=== PATIENT | male | born 1960 | race Caucasian/White ===

== ENCOUNTER 2024-02-11 19:18 | Emergency (ER) | payer BC, SELFPAY ==
[2024-02-11 19:21] VITALS: BP 133/88; PULSE 73; RESP 16; TEMP 36.6; O2SAT 96; BMI 32.3
--- NOTE | 2024-02-11 19:26 | ED.GENADULT ---
HPI - General Adult General Time Seen by Provider: 19:27 Date Seen: 02/11/24 Chief complaint: Abdominal Pain Stated complaint: Diverticulitis flare up Time Seen by Provider: 02/11/24 19:26 Source: patient, RN notes reviewed and old records reviewed Mode of arrival: ambulatory Limitations: no limitations History of Present Illness HPI narrative: 64-year-old male who comes in today with abdominal pain. Patient notes couple of days of left-sided abdominal pain along with diarrhea multi colored stools? but no augustina blood. Patient has a history of diverticulitis and says this feels similar. No prior surgery for diverticulitis. Denies vomiting, fever, chest pain, cough, urinary symptoms. Related Data Home Medications Medication Instructions Recorded Confirmed gabapentin 300 mg capsule 300 mg PO BID PRN neuropathic pain 02/11/24 02/11/24 omeprazole 20 mg capsule,delayed 20 mg PO DAILY 02/11/24 02/11/24 release trazodone 100 mg tablet 200 mg PO QPM 02/11/24 02/11/24 Allergies Allergy/AdvReac Type Severity Reaction Status Date / Time No Known Drug Allergies Allergy Verified 02/11/24 20:22 PFSH PFS Social History Smoking Status: Never smoker How often do you have a drink containing alcohol: 2-4 times a month AUDIT-C Alcohol total score: 2 Non-prescribed substance use: denies use Exam Narrative: Exam Narrative: General: Well-developed and well-nourished, no acute distress Head: Atraumatic and normocephalic Eyes: Pupils are equal reactive, extraocular motions intact, conjunctiva clear ENT: External nose and ears are normal, posterior pharynx without erythema or exudate Neck: No midline cervical tenderness, full spontaneous range of motion the neck, trachea midline, no adenopathy Heart: Regular rate and rhythm no murmurs or thrills Lungs: Clear to auscultation bilaterally without wheezes or crackles Abdomen: Soft, left mid a.m. lower quadrant tender, nondistended with active bowel sounds Musculoskeletal: No tenderness, deformity, or edema Neurologic: Awake, alert, and oriented x3, no gross focal neurologic deficits, cranial nerves intact as tested Psych: Mood and affect are appropriate Skin: No rashes Const: Vital Signs, click to edit/add: Vital Signs - 24 hr 02/11/24 19:21 Temperature 98 F Pulse Rate [Pulse Oximeter] 73 Respiratory Rate 16 Blood Pressure [Ri t Upper Arm] 133/88 Pulse Oximetry 96 Oxygen Delivery Me thod Room Air Course Course ED Course: Patient seen and examined, prior records are reviewed. Patient presents today with abdominal pain, history of diverticulitis and says this feels similar. On initial exam, patient is vitally stable with no fever, tachycardia, or hypotension. He does have left mid abdomen and lower quadrant tenderness. Symptoms are most consistent with diverticulitis, labs ordered along with CT scan of the abdomen pelvis to evaluate for possible perforation although clinically this seems unlikely. If labs and CT are reassuring, patient can be started on oral antibiotics and discharged. Discussed plan with patient and spouse, questions answered. Reevaluation(s) Time of Reevaluation #1: 20:20 Reevaluation #1: Labs ordered and independently interpreted by me with normal white blood cell count, normal hemoglobin, creatinine slightly elevated from normal range at 1.4. Time of Reevaluation #2: 20:24 Reevaluation #2: CT scan of the abdomen and pelvis and panel interpreted by me appears to show an epiploic appendagitis, no evidence for acute diverticulitis. Patient stable for discharge with symptomatic treatment, no follow-up needed Vital Signs Vital signs: Initial Vital Signs Temperature 98 F 02/11/24 19:21 Temperature Source Temporal Artery Scan 02/11/24 19:21 Pulse Rate 73 02/11/24 19:21 Respiratory Rate 16 02/11/24 19:21 Blood Pressure 133/88 02/11/24 19:21 Blood Pressure Mean 103 02/11/24 19:21 Blood Pressure Position Sitting 02/11/24 19:21 Pulse Oximetry 96 02/11/24 19:21 Oxygen Delivery Method Room Air 02/11/24 19:21 Vital Signs Temperature 98 F 02/11/24 19:21 Pulse Rate 73 02/11/24 19:21 Respiratory Rate 16 02/11/24 19:21 Blood Pressure 133/88 02/11/24 19:21 Pulse Oximetry 96 02/11/24 19:21 Oxygen Delivery Method Room Air 02/11/24 19:21 Temperature 98 F 02/11/24 19:21 Pulse Rate 73 02/11/24 19:21 Respiratory Rate 16 02/11/24 19:21 Blood Pressure 133/88 02/11/24 19:21 Pulse Oximetry 96 02/11/24 19:21 Oxygen Delivery Method Room Air 02/11/24 19:21 Medications Administered Medications: Generic Name Dose Route Start Last Admin Trade Name Jean Carlos PRN Reason Stop Dose Admin Sodium Chloride 1,000 mls @ 1,000 mls/hr 02/11/24 20:15 02/11/24 20:25 0.9 % Sodium Chloride 1000 Ml IV 02/11/24 21:14 1,000 mls/hr .Q1H MELANIE Administration Medical Decision Making Lab Data Labs: Lab Results 02/11/24 02/11/24 Range/Units 19:45 19:57 WBC 6.38 (4.50-11.00) K/uL RBC 5.49 (4.30-5.90) m/uL Hgb 16.1 (13.5-17.5) gm/dL Hct 46.8 (37.0-53.0) % MCV 85 (80-100) fL MCH 29 (26-34) pg MCHC 34 (32-36) gm/dL RDW Coeff of Arlin 13.0 (11.5-15.5) % Plt Count 189 (140-440) K/uL Neut % (Auto) 49.2 (42.0-72.0) % Lymph % (Auto) 39.8 (20-44) % [place] % (Auto) 8.6 (0.0-11.0) % Eos % (Auto) 2.0 (0.0-7.0) % Baso % (Auto) 0.2 (0.0-3.0) % Neut # (Auto) 3.14 (1.7-7.0) K/uL Lymph # (Auto) 2.54 (0.90-2.90) K/uL [place] # (Auto) 0.50 (0.00-0.90) K/UL Eos # (Auto) 0.13 (0.00-0.50) K/uL Baso # (Auto) 0.01 (0.00-0.30) K/uL Abs Immat Gran (auto) 0.01 (0.00-0.30) K/uL Imm/Tot Granulo (auto) 0.2 % Sodium 138 (135-149) mmol/L Potassium 3.7 (3.6-5.1) mmol/L Chloride 104 (96-114) mmol/L Carbon Dioxide 25 (20-32) mmol/L Anion Gap 9 (7-15) mEq/L BUN 23 (7-30) mg/dL Creatinine 1.2 (0.5-1.5) mg/dL Estimated Creat Clear 56.12 Estimated GFR 68 ml/min Glucose 106 (60-115) mg/dL Calcium 9.3 (8.4-10.6) mg/dL POC Creatinine 1.4 H (0.6-1.3) mg/dl Discharge Plan Discharge Clinical Impression: Epiploic appendagitis Patient Disposition: Home, Self-Care Condition: Stable Additional Instructions: There is no evidence for diverticulitis or colitis on your CT scan. It appears she may have a condition called epiploic appendagitis. This is a benign self-limited inflammatory process caused by loss of blood flow or inflammation of one of the small fat filled sacs that line the outside of the intestine. This will get better on its own Activity Level: No Restrictions Discharge Diet: Regular Prescriptions: No Action trazodone 100 mg tablet 200 mg PO QPM gabapentin 300 mg capsule 300 mg PO BID PRN (Reason: neuropathic pain) omeprazole 20 mg capsule,delayed release(DR/EC) 20 mg PO DAILY Follow Up/Referrals: Zachery Christianson MD [Primary Care Provider] - Stand Alone Forms: [place] Info Instructions
--- NOTE | 2024-02-11 19:33 | CT_ITS ---
Patient: EVELYN JACKSON Facility:?[facility] Patient ID:?[id number] Site Patient ID:?[id number]. Site :?[id number] Study:?CT-Abdomen/Pelvis W/ 98CC ISOVUE 370-02/11/2024 8:21:42 PM Ordering Physician:[place] Final Report: INDICATION: Left lower quadrant pain. TECHNIQUE: CT abdomen and pelvis acquired with 98 cc Isovue 370 IV contrast. COMPARISON: None. FINDINGS: Lower chest: Scattered atelectasis. Liver: Unremarkable. Normal in size and attenuation. No suspicious masses. Gallbladder and bile ducts: Unremarkable. No stones or inflammation. No biliary dilatation. Pancreas: Unremarkable. No mass or inflammation. Spleen: Unremarkable. Normal in size. No masses. Adrenal glands: Incidental 2.2 centimeter left adrenal nodule. Kidneys: Unremarkable. No suspicious masses, stones, or hydronephrosis. GI tract: Moderate colonic stool burden. Colonic diverticulosis. Normal in caliber. No sign of mass or inflammation. Normal appendix. Vasculature: Abdominal aorta is normal in caliber. Mesenteric arteries are patent. Lymph nodes: No lymphadenopathy. Peritoneum/Abdominal Wall: Unremarkable. No sign of mass or infiltration. No free air or significant free fluid. Pelvis: Prostatomegaly. Mildly distended bladder with circumferential wall thickening. Bones: Bilateral L5 pars defects with mild anterolisthesis of L5 on S1. IMPRESSION: No acute intra-abdominal/pelvic abnormality. Colonic diverticulosis without diverticulitis Moderate colonic stool burden. Prostatomegaly. Please note that all CT scans at this facility use dose modulation, iterative reconstruction, and/or weight-based dosing when appropriate to reduce radiation dose to as low as reasonably achievable. Dictated by Huan Martinez MD @ 02/11/2024 8:35:57 PM Signed by:?Huan Martinez MD @02/11/2024 8:35:57 PM (Electronic Signature)
[2024-02-11 20:02] LABS: Creatinine, Point-of-Care* 1.4 mg/dl (0.6-1.3)
[2024-02-11 20:10] LABS: Basophils Absolute Auto 0.01 K/uL (0.00-0.30); Basophils Percent Auto 0.2 % (0.0-3.0); Eosinophils Absolute Auto 0.13 K/uL (0.00-0.50); Hematocrit 46.8 % (37.0-53.0); Hemoglobin* 16.1 gm/dL (13.5-17.5); Immature Granulocytes Abs Auto 0.01 K/uL (0.00-0.30); Immature Granulocytes Pct Auto 0.2 %; Lymphocytes Absolute Auto 2.54 K/uL (0.90-2.90); Lymphocytes Percent Auto 39.8 % (20-44); Mean Corpuscular HGB Conc 34 gm/dL (32-36); Mean Corpuscular Hemoglobin 29 pg (26-34); Mean Corpuscular Volume 85 fL (80-100); Monocytes Percent Auto 8.6 % (0.0-11.0); Neutrophils Absolute Auto 3.14 K/uL (1.7-7.0); Neutrophils Percent Auto 49.2 % (42.0-72.0); Platelet Count* 189 K/uL (140-440); Red Blood Count 5.49 m/uL (4.30-5.90); White Blood Count* 6.38 K/uL (4.50-11.00)
[2024-02-11 20:14] LABS: Slide Review Reflex No
[2024-02-11 20:20] LABS: Chloride* 104 mmol/L (96-114); Potassium* 3.7 mmol/L (3.6-5.1); Sodium* 138 mmol/L (135-149)
[2024-02-11 20:23] LABS: Anion Gap 9 mEq/L (7-15); Blood Urea Nitrogen* 23 mg/dL (7-30); Carbon Dioxide* 25 mmol/L (20-32); Creatinine* 1.2 mg/dL (0.5-1.5); Est. Creatinine Clearance* 56.12; Estimated Glomerular Filt Rate 68 ml/min; Glucose* 106 mg/dL (60-115)
[2024-02-11 20:24] LABS: Calcium* 9.3 mg/dL (8.4-10.6)
[2024-02-11] MEDS: 0.9 % SODIUM CHLORIDE 1000 ml 1,000 ML IV (20:25)
== END 2024-02-11 21:01 | disposition home or self-care (01) ==
PROVIDERS: Emergency Provider Family Medicine; PCP Family Medicine
DX: K63.89 Other specified diseases of intestine (principal)
CPT/HCPCS: 36415; 74177; 80048; 82565; 85025; 99283; 99284; J7030; Q9967

== ENCOUNTER 2024-08-17 06:54 | Emergency (ER) | payer BC, SELFPAY ==
[2024-08-17 07:14] VITALS: BP 127/79; PULSE 70; RESP 18; TEMP 36.5; O2SAT 95; BMI 31.3
--- NOTE | 2024-08-17 07:24 | ED.ABDPAIN ---
HPI - Abdominal Pain General Time Seen by Provider: 07:24 Date Seen: 08/17/24 Chief Complaint: Abdominal Pain Stated Complaint: Lower LT sided abdominal pain Time Seen by Provider: 08/17/24 07:23 Source: patient Mode of arrival: ambulatory Limitations: no limitations History of Present Illness HPI narrative: 64-year-old male who presents today with left-sided abdominal and flank pain starting yesterday. Worse with walking and movement, no nausea vomiting, no diarrhea. Denied taking medication with. No urinary symptoms. Has had diverticulitis in this feels similar but different location. Related Data Home Medications ?Medication ?Instructions ?Recorded ?Confirmed trazodone 100 mg tablet 200 mg PO QPM 02/11/24 04/18/24 Allergies Allergy/AdvReac Type Severity Reaction Status Date / Time No Known Drug Allergies Allergy Verified 08/17/24 08:23 [facility] Social History Smoking Status: Never smoker How often do you have a drink containing alcohol: 2-4 times a month AUDIT-C Alcohol total score: 2 Non-prescribed substance use: denies use Exam Narrative: Exam Narrative: General: Well-developed and well-nourished, no acute distress Head: Atraumatic and normocephalic Eyes: Pupils are equal reactive, extraocular motions intact, conjunctiva clear ENT: External nose and ears are normal, posterior pharynx without erythema or exudate Neck: No midline cervical tenderness, full spontaneous range of motion the neck, trachea midline, no adenopathy Heart: Regular rate and rhythm no murmurs or thrills Lungs: Clear to auscultation bilaterally without wheezes or crackles Abdomen: Soft, mild left lateral mid abdominal tenderness, nondistended with active bowel sounds Musculoskeletal: No tenderness, deformity, or edema Neurologic: Awake, alert, and oriented x3, no gross focal neurologic deficits, cranial nerves intact as tested Psych: Mood and affect are appropriate Skin: No rashes Const: Vital Signs, click to edit/add: Vital Signs - 24 hr 08/17/24 07:14 08/17/24 08:25 Temperature 97.7 F Pulse Rate [Pulse Oximeter] 70 82 Respiratory Rate 18 16 Blood Pressure [Ri ght Upper Arm] 127/79 126/84 Pulse Oximetry 95 98 Oxygen Delivery Me thod Room Air Room Air Course Course ED Course: Patient seen and examined, presents with left-sided abdominal pain since yesterday. On exam here the, vital is stable, mild left lateral abdominal tenderness. Likely diverticulitis, colitis, mesenteric adenitis, and kidney stone also possible. Labs ordered along with CT scan, patient declines pain medication. Plan to sign out to oncoming provider at change of shift. Reevaluation(s) Time of Reevaluation #1: 08:15 Reevaluation #1: Labs independently interpreted by me with normal CBC, normal basic panel. Vital Signs Vital signs: Initial Vital Signs Temperature 97.7 F 08/17/24 07:14 Temperature Source Temporal Artery Scan 08/17/24 07:14 Pulse Rate 70 08/17/24 07:14 Respiratory Rate 18 08/17/24 07:14 Blood Pressure 127/79 08/17/24 07:14 Blood Pressure Mean 95 08/17/24 07:14 Blood Pressure Position Sitting 08/17/24 07:14 Pulse Oximetry 95 08/17/24 07:14 Oxygen Delivery Method Room Air 08/17/24 07:14 Vital Signs Temperature 97.7 F 08/17/24 07:14 Pulse Rate 70 08/17/24 07:14 Respiratory Rate 18 08/17/24 07:14 Blood Pressure 127/79 08/17/24 07:14 Pulse Oximetry 95 08/17/24 07:14 Oxygen Delivery Method Room Air 08/17/24 07:14 Temperature 97.7 F 08/17/24 07:14 Pulse Rate 82 08/17/24 08:25 Respiratory Rate 16 08/17/24 08:25 Blood Pressure 126/84 08/17/24 08:25 Pulse Oximetry 98 08/17/24 08:25 Oxygen Delivery Method Room Air 08/17/24 08:25 MDM - Abdominal Pain Lab Data Labs: Lab Results 08/17/24 Range/Units 07:25 WBC 5.85 (4.50-11.00) K/uL RBC 5.58 (4.30-5.90) m/uL Hgb 16.5 (13.5-17.5) gm/dL Hct 47.9 (37.0-53.0) % MCV 86 (80-100) fL MCH 30 (26-34) pg MCHC 34 (32-36) gm/dL RDW Coeff of Arlin 13.1 (11.5-15.5) % Plt Count 168 (140-440) K/uL Neut % (Auto) 52.6 (42.0-72.0) % Lymph % (Auto) 35.7 (20-44) % [place] % (Auto) 8.0 (0.0-11.0) % Eos % (Auto) 3.1 (0.0-7.0) % Baso % (Auto) 0.3 (0.0-3.0) % Neut # (Auto) 3.07 (1.7-7.0) K/uL Lymph # (Auto) 2.09 (0.90-2.90) K/uL [place] # (Auto) 0.50 (0.00-0.90) K/UL Eos # (Auto) 0.18 (0.00-0.50) K/uL Baso # (Auto) 0.02 (0.00-0.30) K/uL Abs Immat Gran (auto) 0.02 (0.00-0.30) K/uL Imm/Tot Granulo (auto) 0.3 % Sodium 137 (135-149) mmol/L Potassium 4.3 (3.6-5.1) mmol/L Chloride 108 (96-114) mmol/L Carbon Dioxide 21 (20-32) mmol/L Anion Gap 8 (7-15) mEq/L BUN 19 (7-30) mg/dL Creatinine 0.9 (0.5-1.5) mg/dL Estimated Creat Clear 69.77 Estimated GFR 95 ml/min Glucose 107 (60-115) mg/dL Calcium 9.2 (8.4-10.6) mg/dL Discharge Plan Discharge Clinical Impression: Left lateral abdominal pain, Adrenal nodule Patient Disposition: Home, Self-Care Condition: Stable Instructions: Abdominal Pain (ED) Additional Instructions: Take Tylenol and ibuprofen as needed for pain There is a nodule on the left adrenal eating. These are common and benign. You should follow-up with your primary care doctor for re-evaluation in 3-6 months Activity Level: No Restrictions Discharge Diet: Regular Prescriptions: No Action trazodone 100 mg tablet 200 mg PO QPM Follow Up/Referrals: Zachery Christianson MD [Primary Care Provider] - Stand Alone Forms: [employer] Info Instructions
--- NOTE | 2024-08-17 07:31 | CT_ITS ---
Patient: EVELYN JACKSON Facility:?[facility] Patient ID:?[id number] Site Patient ID:?[id number]. Site :?[id number] Study:?CT-Abdomen/Pelvis WITH 98 CC ISOVUE 370-08/17/2024 8:27:26 AM Ordering Physician:Jude De Leon Final Report: INDICATION: Left-sided abdominal pain COMPARISON: None TECHNIQUE: CT examination of the abdomen and pelvis was performed following the uneventful intravenous administration of 98 cc of Isovue 370. Thin section axial images were obtained from the lung bases through the pubic symphysis. Oral contrast was not administered. Please note that all CT scans at this facility use dose modulation, iterative reconstruction, and/or weight-based dosing when appropriate to reduce radiation dose to as low as reasonably achievable. FINDINGS: LUNG BASES: Granuloma at the right lung base. Small hiatal hernia.The heart size is normal at the lung bases. LIVER/BILIARY SYSTEM:The liver is normal in size and configuration. There is no focal mass and there is no intra- or extra hepatic biliary ductal dilatation.Hepatic steatosis. Normal-appearing gallbladder ADRENALS: Right adrenal gland is normal. There is a left adrenal nodule measuring 2.2 centimeters. This is considered indeterminate. Consider follow-up imaging such as a multiphase CT or multiphase MRI to characterize this lesion. KIDNEYS, URETERS and BLADDER:The kidneys appear normal. No visible mass, calculus or hydronephrosis. The ureters and bladder as visualized appear normal. SPLEEN:Incidental granulomatous calcification PANCREAS: Appears normal. RETROPERITONEUM and MESENTERY: There is no mass, adenopathy or aortic aneurysm. GASTROINTESTINAL SYSTEM: There is no evidence of diverticulitis, colitis, mechanical obstruction, or appendicitis. The small bowel as visualized appears normal.Extensive diverticulosis. Mild fecal retention. No acute appearing GI finding. PELVIS: No mass, adenopathy or free fluid. OSSEOUS STRUCTURES and ABDOMINAL WALL: Degenerative changes especially at L5-S1. There is also a grade 1 spondylolytic spondylolisthesis of L5 on S1.Incidental tiny fat containing umbilical hernia. OTHER: No free fluid or free air. IMPRESSION: 1. There is no specific visible cause for pain. 2. Indeterminate left adrenal nodule. Consider follow-up formal additional imaging for characterization in the nonacute setting. 3. Diverticulosis without diverticulitis. No acute appearing GI finding and no acute appearing renal finding to explain left-sided abdominal pain. 4. Other incidental nonacute appearing findings as discussed in the body of the report. Please review the comments. Please note that all CT scans at this facility use dose modulation, iterative reconstruction, and/or weight-based dosing when appropriate to reduce radiation dose to as low as reasonably achievable. Dictated by Lakhwinder Fallon MD @ 08/17/2024 8:32:18 AM Signed by:?Lakhwinder Fallon MD @08/17/2024 8:32:18 AM (Electronic Signature)
[2024-08-17 07:37] LABS: Basophils Absolute Auto 0.02 K/uL (0.00-0.30); Basophils Percent Auto 0.3 % (0.0-3.0); Eosinophils Absolute Auto 0.18 K/uL (0.00-0.50); Eosinophils Percent Auto 3.1 % (0.0-7.0); Hematocrit 47.9 % (37.0-53.0); Hemoglobin* 16.5 gm/dL (13.5-17.5); Immature Granulocytes Abs Auto 0.02 K/uL (0.00-0.30); Immature Granulocytes Pct Auto 0.3 %; Lymphocytes Absolute Auto 2.09 K/uL (0.90-2.90); Lymphocytes Percent Auto 35.7 % (20-44); Mean Corpuscular HGB Conc 34 gm/dL (32-36); Mean Corpuscular Hemoglobin 30 pg (26-34); Mean Corpuscular Volume 86 fL (80-100); Neutrophils Absolute Auto 3.07 K/uL (1.7-7.0); Neutrophils Percent Auto 52.6 % (42.0-72.0); Platelet Count* 168 K/uL (140-440); RDW Coefficient of Variation % 13.1 % (11.5-15.5); Red Blood Count 5.58 m/uL (4.30-5.90); White Blood Count* 5.85 K/uL (4.50-11.00)
--- OUTSIDE RECORDS SUMMARY | 2024-08-17 07:38 | XMS_ITS | Continuity of Care Document ---
Author Organization [facility] Address [address] [address] [place] [address] Phone Care Team Providers Care Interactive Account Manager Name Role Phone Cynthia GEE, Rosalie Unavailable Unavaila ble Allergies, Adverse Reactions, Alerts Substance Reaction Status Criticality No Known Allergies Active No Inform ation Medications Medication Instructions Dosage Effective Dates (start - stop) Status Comments omeprazole 20 mg capsule,delayed release take 1 capsule by oral route every day 30 minutes to 1 hour before a meal 20 MG - Active Pepcid 20 mg tablet take 1 tablet by oral route every day 20 MG - Active trazodone 100 mg tablet take 2 Tablet by ORAL route every evening as needed for sleep 200 MG - Active aspirin 81 mg tablet,delayed release take 1 tablet by oral route 2 times every day 81 MG - No Longer Active omeprazole 40 mg capsule,delayed release take 1 capsule by oral route every day before a meal 40 MG - No Longer Active Procedures Procedure Date Offic/outpt E&m Estab Low-mod 2 Ugi Endo; W/bx 1/mx Level Iv-surg Path Gross/micro 22 Offic/outpt E&m Estab Mod-hi 2 22 Established Level 3 or 15-24 min 2019 Ugi Endo; W/bx 1/mx Level Iv-surg Path Gross/micro 20 Established Level 4 or 25-39 min 2019 Offic/outpt E&m Estab Mod-hi 2 20 Colonoscopy Flex; W/remov Les- 19 Level Iv-surg Path Gross/micro 19 cancelled appt Offic/outpt E&m New Mod-hi Advance Directives Directive Yes / No Effective Date File Name No Information Encounters Encounter Description Practice Location Reason(s) For Visit Diagnoses Date Provider Providers Copied on Encounter Offic/outpt E&m Estab Low-mod [facility], [address] [address], [place], [place], [id number], [place] tel:[phone] [facility] GI Symptoms or Concerns (chief complaint) Epigastric painAcute gastritis, presence of bleeding unspecified, unspecified gastritis type 2 Cynthia Wiggins. [address] [place] [address], [id number], [place]. tel:[phone] Referring Provider: Referral Self, USE FOR SELF REFERRALS. [facility], [address] [address], [place], [place], [id number], [place] tel:[phone] [facility] GI Symptoms or Concerns (chief complaint) Epigastric painEpigastri c pain 2 Namrata Pollard. [address], [id number], [place]. tel:[phone] Referring Provider: Referral Self, USE FOR SELF REFERRALS. Offic/outpt E&m Estab Mod-hi [address] [facility], [address] [address], [place], [place], [id number], [place] tel:[phone] [facility] GI Symptoms or Concerns (chief complaint) Epigastric painNauseaCon stipation, unspecified constipation type 2 Cynthia Wiggins. [address] [place] [address], [id number], [place]. tel:[phone] Referring Provider: Referral Self, USE FOR SELF REFERRALS. Established Level 3 or 15-24 min [facility], [address] [address], [place] [address], [id number], [place] tel:[phone] [facility] GI Symptoms or Concerns (chief complaint) LUQ painLLQ pain 0 iDann Mendoza. [address] [place] [address], [id number], [place]. tel:[phone] Referring Provider: Zachery Tyler, [address] [place], [address]. tel:[phone] [facility], [address] [address], [address], [id number], [place] tel:[phone] [facility] Irregular Z line of esophagusHiat al herniaGastrod uodenitis without bleedingDuode nitis without bleedingAbnor mal findings on dx imaging of prt digestive tractUnspecif ied abdominal painDisease of esophagus, unspecified 0 No Information Referring Provider: Referral Self, USE FOR SELF REFERRALS. Established Level 4 or 25-39 min [facility], [address] [address], [address], [id number], [place] tel:[phone] [facility] GI Symptoms or Concerns (chief complaint) LUQ painLLQ painBloatingD ecreased appetite 0 Diann Mendoza. [address] [place] [address], [id number], [place]. tel:[phone] Referring Provider: Zachery Tyler, [address] [place], [address]. tel:[phone] [facility], [address] [address], [address], [id number], [place] tel:[phone] [facility] No Information 0 Carina Mckeon. [address] [place] [address], [id number], [place]. tel:[phone] Offic/outpt E&m Estab Mod-hi [address] [facility], [address] [address], [address], [id number], [place] tel:[phone] [facility] Comment (chief complaint) Dvrtclos of lg int w/o perforation or abscess w/o bleeding 0 Dereje Nguyen. [address] [facility], [address], [id number], [place]. [phone] Referring Provider: Referral Self, USE FOR SELF REFERRALS. [facility], [address] [address], [place], [place], [id number], [place] tel:[phone] [facility] No Information 0 Carina Mckeon. [address], [id number], [place]. [phone] [facility], [address] [address], [place], [id number], [place] tel:[phone] [facility] Colorectal polypsDiverti culosis of colon without diverticuliti sHemorrhoids, externalEncou nter for screening for malignant neoplasm of colonBenign neoplasm of transverse colonBenign neoplasm of descending colonDvrtclos of lg int w/o perforation or abscess w/o bleedingBenig n neoplasm of descending colonBenign neoplasm of transverse colon 9 Travon Duran. [address], [id number], [place]. tel:[phone] Referring Provider: Zachery Tyler, [address] [place], [address]. tel:[phone] [facility], [address] [address], [place], [id number], [place] tel:[phone] [facility] No Information 9 Heather Obregon. [address] [facility], [address], [id number], [place]. tel:[phone] Referring Provider: Zachery Tyler, [address] [place], [address]. tel:[phone] Offic/outpt E&m New Mod-hi [facility], [address] [address], [place], [place], [id number], [place] tel:[phone] [facility] GI Symptoms or Concerns (chief complaint) Chest pain, unspecified typeDietary counseling and surveillanceE levated blood-pressur e reading, w/o diagnosis of htn 9 Joana Dalal. [address] [facility], [facility] [address], [place], [place], [id number], [place]. tel:[phone] Referring Provider: Zachery Tyler, [address] [place], [address]. tel:[phone] Family History Family Member Type Diagnosis Age At Onset Mother Problem (finding) malignant neoplasm of s kin Brother Problem (finding) alcoholism Son Problem (finding) alcoholism Problem (finding) Family history of Cance r, unknown Father Problem (finding) malignant neoplasm of s kin Father Problem (finding) gallbladder disease Sister Problem (finding) alcoholism Immunizations Vaccine Date Status Comments Afluria Qd administered Note: II bi-directional interface ; Source: Other Registry SARS-COV-2 (COVID-19) vaccin e, mRNA, spike protein, LNP, bivalent booster, preservative free, 50 mcg/0.5 mL or 25 mcg/0.25 mL dose administered Note: [facility] bi-direct ional interface ; Source: Other Registry SARS-COV-2 (COVID-19) vaccin e, mRNA, spike protein, LNP, preservative free, 100 mcg/0.5mL dose or 50 mcg/0.25mL dose administered Note: [facility] bi -directional interface ; Source: Other Registry SARS-COV-2 (COVID-19) vaccin e, mRNA, spike protein, LNP, preservative free, 100 mcg/0.5mL dose or 50 mcg/0.25mL dose administered Note: [facility] bi -directional interface ; Source: Other Registry SARS-COV-2 (COVID-19) vaccin e, mRNA, spike protein, LNP, preservative free, 100 mcg/0.5mL dose or 50 mcg/0.25mL dose administered Note: [facility] bi -directional interface ; Source: Other Registry zoster vaccine recombinant administered N ote: [facility] bi-directional interface ; Source: Other Registry zoster vaccine recombinant administered N ote: [facility] bi-directional interface ; Source: Other Registry Afluria Qd administered Note: [facility] bi-directional interface ; Source: Other Registry Afluria Qd administered Note: [facility] bi-directional interface ; Source: Other Registry Fluzone Quad 6mo or older administered Note: [facility] bi-direct ional interface ; Source: Other Registry Afluria Qd administered Note: [facility] bi-directional interface ; Source: Other Registry Afluria Qd administered Note: [facility] bi-directional interface ; Source: Other Registry Fluzone Quad 6mo or older administered Note: [facility] bi-direct ional interface ; Source: Other Registry tetanus toxoid, reduced diphtheria toxoid, and acellular pertussis vaccine, adsorbed administered Note: [facility] b i-directional interface ; Source: Other Registry tetanus and diphtheria toxoi ds, adsorbed, preservative free, for adult use (5 Lf of tetanus toxoid and 2 Lf of diphtheria toxoid) administered Note: [facility] bi-direct ional interface ; Source: Other Registry Payers Payer name Insurance type Covered alliance party ID Authoriza tijenni(s) [employer] [facility] [id number] Social History Type Description Quantity Date Captured Comments Alcohol Use Details Caffeine Use Details Unknown Tobacco Use Status undefined Smoking Status undefined Sex Male Vital Signs Date / Time: Height Weight BMI Pulse Rate Blood Pressure Temperature Respiratory Rate Body Surface Area Head Circumference Head Circ. Percentile Wt./Quinn. Percentile BMI percentile Pulse Ox Inhaled Ox 12:17 PM 67.00 in 92.079 kg (203.00 lbs) 31.7 9 kg/m eter (2) 88 /min 119/70 mm[Hg] Chief Complaint And Reason For Visit From encounter dated '11/06/2022 12:45'. GI Symptoms or Concerns (chief complaint). Description: Simone Wood is a 62-year-old male who is seen in clinic to follow-up on epigastric pain and constipation. The patient was last seen in clinic on October 25 for the above concerns. He had had symptoms of epigastric pain that followed after his total left knee replacement on October 01. Upper endoscopy was done on October 28 which revealed gastritis in the antrum with erosions and surrounding erythema, and duodenitis with diffuse erythema in the duodenal bulb. Gastric and duodenal biopsies were negative. Patient had unremarkable blood work prior to this visit including CBC, BMP, hepatic function panel outside of slight elevation of total bilirubin to 1.5. H pylori test was negative. I had started the patient on omeprazole 40 milligrams daily as well as famotidine 1-2 times per day in addition. Additionally, due to concerns of underlying constipation the patient was advised to complete a bowel cleanse.Today in clinic the patient states that his epigastric pain has completely resolved. This improved within a week of being started on the omeprazole. He has continued to adhere to more of a bland dietbut his appetite has also improved. His aversion to food has seemed to resolve. He explains that hedid complete the bowel cleanse as we had discussed. He is currently taking a fiber supplement dailyas well as a half a capful of MiraLax per day. He is currently having 2-3 bowel movements per day th at are soft and formed. He states that overall he felt much better following the cleanse. The patient did take Toradol for a few days following his surgery as well as oxycodone for a couple of weeks following. He otherwise avoids NSAIDs. The patient's last colonoscopy was in August 2019 which was a good quality 2 adenomatous polyps, diverticulosis, and external hemorrhoids. Repeat examination was recommended in 5 years. Past medical/ surgical history: The patient reports a very remote history of peptic ulcer disease as a child. There is no history of abdominal surgeries. Family medical history: Denies family history of colon cancer disorders Social history: The patient is not currently a smoker but does have a history of cigarette use up until 3 years ago. He has not consumed any alcohol since prior to his surgery. He avoids NSAIDs but did receive Toradol postoperatively. Reason For Referral Reason For Referral No Information Plan Of Treatment Date Type Action Status Goal Lifestyle education salo valentine diet completed Referral Ordered: CT Enterography WITH Contrast Appointment date/timeframe: 09/20/2020 ordered Referral Ordered: follow-up visit 2 Months Appointment date/timeframe: -today ordered History Of Present Illness Encounter Date Complaint History Of Prese nt Illness GI Symptoms or Concerns Simone Wood is a 62-year-old male who is seen in clinic to follow-up on epigastric pain and constipation. The patient was last seen in clinic on October 25 for the above concerns. He had had symptoms of epigastric pain that followed after his total left knee replacement on October 01. Upper endoscopy was done on October 28 which revealed gastritis in the antrum with erosions and surrounding erythema, and duodenitis with diffuse erythema in the duodenal bulb. Gastric and duodenal biopsies were negative. Patient had unremarkable blood work prior to this visit including CBC, BMP, hepatic function panel outside of slight elevation of total bilirubin to 1.5. H pylori test was negative. I had started the patient on omeprazole 40 milligrams daily as well as famotidine 1-2 times per day in addition. Additionally, due to concerns of underlying constipation the patient was advised to complete a bowel cleanse.Today in clinic the patient states that his epigastric pain has completely resolved. This improved within a week of being started on the omeprazole. He has continued to adhere to more of a bland diet but his appetite has also improved. His aversion to food has seemed to resolve. He explains that he did complete the bowel cleanse as we had discussed. He is currently taking a fiber supplement daily as well as a half a capful of MiraLax per day. He is currently having 2-3 bowel movements per day that are soft and formed. He states that overall he felt much better following the cleanse. The patient did take Toradol for a few days following his surgery as well as oxycodone for a couple of weeks following. He otherwise avoids NSAIDs. The patient's last colonoscopy was in August 2019 which was a good quality 2 adenomatous polyps, diverticulosis, and external hemorrhoids. Repeat examination was recommended in 5 years. Past medical/ surgical history: The patient reports a very remote history of peptic ulcer disease as a child. There is no history of abdominal surgeries. Family medical history: Denies family history of colon cancer disorders Social history: The patient is not currently a smoker but does have a history of cigarette use up until 3 years ago. He has not consumed any alcohol since prior to his surgery. He avoids NSAIDs but did receive Toradol postoperatively. GI Symptoms or Concerns GI Symptoms or Concerns Simone Wood is a 62-year-old male who is seen in clinic to discuss epigastric pain. He is accompanied by his in clinic today.The patient first started having significant epigastric pain one week ago, on October 18. He was seen in an ER on this date. I am able to access records through [facility] including abdominal imaging with CT scan of the abdomen and pelvis with IV contrast which revealed a few prominent non-dilated loops of small bowel, nonspecific. Scattered colonic diverticulosis without acute diverticulitis, and mild prostatomegaly. Blood work was done on this date which revealed a normal CBC, BMP, hepatic function panel outside slightly elevated bilirubin at 1.5. He also recently saw his PCP who tested him for H pylori which was negative. The patient has epigastric pain that is quite severe and quite persistent throughout the day. Occasionally he will have an hour or two where it is less bothersome. He reports hiccuping and belching. Denies significant heartburn symptoms, however he notes an atypical sensation in his throat where food feels like sand. He has had an aversion to food in general. He reports having no appetite. He has had significant nausea in addition. He has been dry heaving over the past week. Has not had any episodes of vomiting until one episode today. He is actively making an effort on water intake, which he is keeping down.the patient had a total left knee replacement on October 01. He did receive Oxycodone, which he took for a couple weeks following. He then received Hydrocodone in the emergency room last week which he took for several days. He reports daily bowel movements but does have a sensation of incomplete evacuation. He was advised to begin taking Miralax which he has been taking for the past 3 days. He has had some looser stools since starting the MiraLax. At other times he reports just small, loose pieces of stool. Denies any hematochezia or melena. Received Toradol a few days after surgery but has otherwise avoided NSAIDs.He has lost about 18 pounds since his surgery 1 month ago and about 10 pounds in about the past week. The patient did have an upper endoscopy September 2020 which revealed an irregular Z-line with small tongues and islands and a small hiatal hernia. There was moderate erosive gastropathy throughout the stomach, and inflamed lesion of the pylorus, and mild duodenopathy. The biopsy at the GE junction revealed normal squamous and cardia type mucosa, gastric biopsies revealed polypoid reactive hyperplasia, and duodenal biopsies revealed nonerosive duodenitis. Patient's last colonoscopy was in August 2019 which was a good quality prep and significant for 2 adenomatous polyps, diverticulosis, and external hemorrhoids.PAST MEDICAL/SURGICAL HISTORYThe patient reports a remote history of peptic ulcer disease as a child. There is no history of abdominal surgeries.FAMILY MEDICAL HISTORYDenies family history of colon cancer or inflammatory bowel disease SOCIAL HISTORYThe patient does have a history of cigarette use up until 3 years ago, is not currently smoking. He typically will drink 5-6 beers per week but has not had any alcohol in the past month. He avoids NSAIDs. GI Symptoms or Concerns The tucker ent is a 60-year-old male who had a total visit performed today for followup of left upper quadrant pain, left lower quadrant pain, bloating, and decreased appetite. He had a telehealth visit last on September 05, 2020. He had had a CT scan that showed some possible stranding around the mesentery in the epigastric area. We repeated a CT enterography [address] CT scan and this revealed a normal bowel with no inflammation in the bowel or around the bowel. He did have a stable 2.5 cm left adrenal adenoma that the patient is aware of. The patient also had an upper endoscopy on September 14 for followup of his left upper quadrant pain. This showed some gastropathy and duodenitis. Biopsies revealed some duodenitis and a hyperplastic polyp at the pylorus. The patient reports that he has stopped many of his medications including gabapentin, daily aspirin, and Protonix, and he feels fantastic. He denies any abdominal pain or any GI symptoms at this time. The patie GI Symptoms or Concerns Patient is a 60-year-old male who had a virtual visit performed today for evaluation of abdominal pain and bloating and decreased appetite.Patient reports he was doing fine until August 20 when he developed sudden onset of diarrhea as well as some epigastric and left upper quadrant pain. He presented to the ER where they did lab work including a CMP, CBC, lipase, lactate. Labs were significant for mild elevation in his creatinine to 1.41, as well as a mild elevation in his lactate to 2.1 with upper limit of normal being 2.0. His CMP and CBC were otherwise unrevealing. He had a CT scan of the abdomen and pelvis that revealed a small rim of mesenteric root fat stranding in the left epigastric mesentery that was nonspecific. No other significant abnormalities were seen. He reports that since that time, he has had some intermittent sharp left upper quadrant pain and intermittent dull left lower quadrant pain as well as some intermittent bloating and a decreased appetite. He Comment Simone Wood is a pleasant 60-year-old man with a history of colon polyps and diverticulitis and possible heartburn symptoms in the past who presents for followup for diverticulitis episodes.Simone had his 1st episode of diverticulitis confirmed by CT scan in June 2019. He was treated with antibiotics with good response. I do not believe that that was complicated in any way. He had a recurrent episode just a few weeks ago, that was also treated with antibiotics, although no CT scan was done at that time. His symptoms were similar to the previous episode with pain in his left abdomen and he responded to antibiotics again. He is currently without any symptoms. He wishes more information about diverticulosis and diverticulitis and ways to prevent this.Of note, his last colonoscopy was in August 2019 and was for colon cancer screening as well as his history of diverticulitis. He had 2 diminutive tubular adenomas removed. There was also note of diverticulosis in the desc GI Symptoms or Concerns Mr. 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 He has generally been in pretty good health except for chronic insomnia, impaired fasting glucose, maybe a history of peptic ulcer in the past and allergies. He was hospitalized for few days in early May with chest pain. The pain was suspicious for coronary ischemia, so he underwent a coronary angiogram that apparently just revealed 1 minor stenosis not requiring stents. Myocardial infarction was ruled out. He did suffer a small occipital stroke probably related to the coronary angiogram.The chest pain, Mr. Wood was admitted to the hospital for it and has been a problem for a period of weeks or months. It is vague chest pressure in the lower substernal area. It can radiate both ways. He does not have a history of frequent heartburn, only rarely has he generally used any kind of antacids. There has been no dysphagia or odynophagia. There has been no unexpected weight loss.Pantoprazole was prescribed abo Functional Status Date Functional Assessmen t No Information Instructions Date Instruction Additional Infor juwan 1. Continue Omeprazo le 40mg daily for the next month. Then trial reducing this to 20mg daily. Continue this for 2-3 weeks but then it would be okay to trial stopping the medication. If symptoms return, restart at 20mg daily. 2. Continue Famotidine (Pepcid) 1-2 times per day as needed. This does not need to be continued if you continue to do well. 3. Continue fiber supplement daily as well as Miralax. Okay to stop the Miralax if you are having regular BMs with the fiber supplement.4. Colonoscopy is next due in 2023. 5. Follow-up in clinic as needed. Related to Epigastric pain --Upper endoscopy wi gastric and duodenal biopsies to evaluate cause of pain--Start Omeprazole 40mg daily. Take this medication 30-60 minutes prior to eating.--Take Famotidine (Pepcid) 20mg 1-2 times per day as well.--Complete a bowel cleanse by mixing an 8oz bottle of Miralax with 64 oz of Gatorade and drinking 1 cup every 30-60 minutes until complete. --After the cleanse start taking a fiber supplement such as Citrucel daily as well as Miralax 1/2-1 capful per day. --Follow-up in clinic after the above. Feel free to call or message me with any questions or concerns [phone]. 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 of esophagus Hiatal Hernia Related to Irreg ular Z line of esophagus NSAIDS List Related to Irreg ular Z line of esophagus -EGD with gastric an d duodenal biopsies-CT enterography in 2 months to check for resolution of mild fat stranding seen in epigastric mesentery on 08/20/20 CT abdomen/pelvis performed in [place], [place]-Continue pantoprazole 40 mg daily-Minimize use of diclofenac and other NPZEQt-Djwixz-ks in 2 months, after CT enterography Related to LUQ pain Diverticulosis/Diverticulitis 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 Finish out supply of pantoprazole/Protonix2. Upper endoscopy to rule out any worrisome disease process3. If endoscopy normal and no real improvement with pantoprazole - likelhood of upper GI illness is low, then follow up with Dr. Christianson Related to Chest pain, unspecified type Lifestyle education regarding di et Related to Dietary counseling and surveillance Assessments Type Assessment Date assessment Epigastric pain assessment Acute gastritis, pre sence of bleeding unspecified, unspecified gastritis type impression This patient is a 62 -year-old male who underwent a left total knee replacement in September and presented with epigastric pain following this procedure. Upper endoscopy was significant for gastritis with gastric erosions and duodenitis, with negative biopsies. Clinically, he has significantly improved since starting omeprazole 40 milligrams daily. I did advise that he continue this for the next month but if he continues to do well he may trial weaning off of the medication. If he does have recurrence of symptoms he may benefit from being on a low-dose PPI long-term. We also discussed avoiding GI irritants such as NSAIDs and alcohol. The patient also had constipation which was likely secondary to opioids following surgery. He has had improved bowel regularity since his bowel cleanse and starting a maintenance regimen daily. Discussed that it is safe to continue this regimen joint terminal attack controller, but he may not need to as he incorporates more fiber into his diet now that his appetite has improved and as he is no longer taking opioids. He is next due for a colonoscopy in 2023. Mental Status Date Cognitive Assessment Orientation - [place] ed to time, place, person, situation. Patient Care Teams Name Effective Dates (start - stop) Status Members No Information
--- OUTSIDE RECORDS SUMMARY | 2024-08-17 07:38 | XMS_ITS | Clinical Summary ---
Author Organization [facility] Address [address] [address] Phone Care Team Providers Care Priming Powder Premix Blender Name Role Phone Unavailable Primary Care Provider Unavailabl e Allergies No known active allergies Social History Tobacco Use Types Packs/Day Years Used Date Smoking Tobacco: Never Assessed Sex and Gender Information Value Date Recorded Sex Assigned at Not on file Gender Identity Not on file Sexual Orientation Not on file Job Start Date Occupation Industry Not on file Not on file Not on file Last Filed Vital Signs Vital Sign Reading Time Taken Comments Blood Pressure 134/77 08/20/2020 11:46 AM CDT Pulse 64 08/20/2020 11:46 AM CDT Temperature 36.2 ??C (97.1 ??F) 08/20/2020 9:21 AM CD T Respiratory Rate 16 08/20/2020 11:46 AM CDT Oxygen Saturation 98% 08/20/2020 9:21 AM CDT Inhaled Oxygen Concentration - - Weight 99.8 kg (220 lb) 08/20/2020 9:21 AM CDT Height - - Body Mass Index - - Plan of Treatment Not on file
--- OUTSIDE RECORDS SUMMARY | 2024-08-17 07:38 | XMS_ITS | Clinical Summary ---
Author Organization [facility] Address [address], [place] [address] Care Team Providers Care Transfer Worker Name Role Phone Zachery Christianson MD Primary Care Provider [phone] Source Comments You are receiving this document as you are listed as the primary care provider,follow-up provider, or the patient has been referred to you for consultation.This is in compliance with the Medicare and[facility] EHR Incentive Program,which states Providers who transition their patient to another setting of careor provider of care or refers their patient to another provider of care shouldprovide summary care record for each transition of care or referral. [facility] Allergies No known active allergies Medications Medication Sig Dispensed Refills Start Date End Date Status traZODone (DESYREL) 100 MG tablet Take 200 mg by mouth daily at bedtime. 12/14/2019 Active aspirin 81 MG tablet Take 81 mg by mouth daily. Active PANTOPRAZOLE SODIUM OR Ac tive ATORVASTATIN CALCIUM OR A ctive Social History Tobacco Use Types Packs/Day Years Used Date Smoking Tobacco: Never Assessed Sex and Gender Information Value Date Recorded Sex Assigned at Not on file Gender Identity Not on file Sexual Orientation Not on file Plan of Treatment Health Maintenance Due Date Last Done Comments Colon Cancer Screening Plan Due 1960 Hep C Screening (Preventive Services) 1960 PSA Screening Discussion 1960 HIV Screening (Preventive Services) 1976 Adult Preventive Visit 01/13/1978 Cholesterol 01/13/1995 COVID-19 Vaccine (2 - 4-2 5 season) 2024 02/01/2021 Influenza (#1) 2024 08/14/2020, 09/11/2018, 08/20/2016 DTaP/Tdap/Td (2 - Tdap) 07/16/2026 07/16/20 16, 01/10/2007 RSV (1 - 1-dose 75+ series) 01/13/2035 Zoster/Shingles Completed 01/26/2020, 11/04/2019 HepA Aged Out No longer eligi ble based on patient's age to complete this topic HepB Aged Out No longer eligi ble based on patient's age to complete this topic Hib Aged Out No longer eligi ble based on patient's age to complete this topic IPV (Polio) Aged Out No longer eligi ble based on patient's age to complete this topic RSV Aged Out No longer eligi ble based on patient's age to complete this topic MCV4 Aged Out No longer eligi ble based on patient's age to complete this topic Pneumococcal Aged Out No longer eligi ble based on patient's age to complete this topic Care Teams Transfer Worker Relationship Specialty Start [place] [address] [place] [address] PCP - General Family Practice 01/19/20
--- OUTSIDE RECORDS SUMMARY | 2024-08-17 07:39 | XMS_ITS | Clinical Summary ---
Author Organization [employer] [facility] Address [place], [place] [address] Care Team Providers Care Education Coordinator Name Role Phone Zachery Christianson MD Primary Care Provider Allergies No known active allergies Medications Medication Sig Dispensed Refills Start Date End Date Status gabapentin (NEURONTIN) 300 mg capsuleIndications:N erve pain Take 1 Capsule (300 mg) by mouth 2 times daily if needed (Nerve Pain). 60 Capsule 5 10/03/2023 Active traZODone (DESYREL) 100 mg tabletIndications:Ch ronic insomnia Take 2 Tablets (200 mg) by mouth at bedtime. 180 Tablet 3 10/03/2023 Active Active Problems Problem Noted Date Diagnosed Date S/P total knee replacement, left, 2021 3 Supraventricular tachycardia 04/23/2021 Left adrenal mass 05/14/2020 Overview (05/14/2020): Incidentally noted 2018. Occipital stroke, 05/28, secondary diplopia 05/28 Overview (05/14/2020): 05/22/19 Obesity (BMI 30.0-34.9) 05/19/2019 Routine health maintenance 09/11/2018 Overview (09/08/2019): Colonoscopy 08/28, recheck 5 yrs depression 06/01/2018 Chronic insomnia 05/02/2017 Seasonal allergies Coronary artery disease Resolved Problems Problem Noted Date Diagnosed Date Resolved Date SACHI (obstructive sleep apnea) 08/15/2019 08/31/2019 Diarrhea 05/20/2019 05/14/2020 Chest pain 05/19/2019 05/14/2020 cataract of both eyes 10/16/20172019 Right inguinal hernia 02/12/20112019 Abnormal ECG 10/29/2019 Immunizations Name Administration Dates Next Due COVID-19 VACCINE SPIKEVAX (M ODERNA 50MCG/0.5ML) 12YO+ PFS 10/03/2023 COVID-19 vaccine (Moderna 100mcg/0.5mL) PF, MDV 03/01/2021,02/01/2021 COVID-19 vaccine (Moderna 50mcg/0.5mL) 12YO+ BIVALENT PF, MDV 09/12/2022 COVID-19 vaccine (Moderna [place] 50mcg/0.25mL) PF, MDV 11/15/2021 Influenza, IIV3 (Age >=3 years) 10/22/2004 Influenza, IIV4 10/03/2023,,09/10/2021,2019,09/11/2018,08/20/2016 Td (Age >=7 Years) 10/22/2004 Td, Preservative Free (age > = 7 Years) 01/10/2007 Tdap 07/16/2016 Zoster (Shingrix-RZV, recombinant) 01/26/2020, Family History Medical History Relation Name Comments Good Health Brother 3 Good Health Brother 4 Good Health Daughter 3 Good Health Daughter 4 Good Health Father Good Health Mother Good Health Sister 3 Good Health Sister 4 Good Health Son 2 Relation Name Status Comments Brother 1 Alive Brother 2 Alive Brother 3 Brother 4 Daughter 1 Alive Daughter 2 Alive Daughter 3 Daughter 4 Father Alive Mother Alive Sister 1 Alive Sister 2 Alive Sister 3 Sister 4 Son 1 Alive Son 2 Social History Tobacco Use Types Packs/Day Years Used Date Smoking Tobacco: Former Cigarettes Q uit: 02/2018 Smokeless Tobacco: Never Tobacco Cessation:Counseling Given: Not Answered Comments:started age 12-13 Alcohol Use Standard Drinks/Week Comments Yes 2 (1 standard drink = 0.6 oz pur e alcohol) weekly PHQ-2 Answer Date Recorded PHQ-2 TOTAL SCORE 0 07/25/2023 Social Connections Answer Date Recorded Frequency of Communication with Friends and Fami ly Not on file 02/09/2024 Financial Resource Strain Answer Date R ecorded Difficulty of Paying Living Expenses 3 02/07/2023 Difficulty of Paying Living Expenses Not on file 02/07/2023 Food Insecurity Answer Date Recorded Worried About Running Out of Food in the Last Ye ar 1 02/07/2023 Transportation Needs Answer Date Record ed Lack of Transportation (Medical) 1 02/07/2023 Housing Stability Answer Date Recorded Unable to Pay for Housing in the Last Year 1 02/07/2023 Sex and Gender Information Value Date Recorded Sex Assigned at Male 01/29/2021 5:27 AM CDT Gender Identity Male 01/29/2021 5:28 AM CDT Sexual Orientation Straight 01/29/2021 5: 28 AM CDT Obstetrics History Last Filed Vital Signs Vital Sign Reading Time Taken Comments Blood Pressure 110/74 10/16/2023 9:26 AM SENIOR CREDIT ANALYST Pulse 68 10/16/2023 9:26 AM SENIOR CREDIT ANALYST Temperature 36.6 ??C (97.9 ??F) 07/25/2023 8 :34 AM CDT Respiratory Rate 16 02/07/2023 11:0 0 AM CDT Oxygen Saturation 93% 02/07/2023 1:3 4 PM CDT Inhaled Oxygen Concentration - - Weight 92.3 kg (203 lb 6.4 oz) 10/16/20 9:26 AM SENIOR CREDIT ANALYST with shoes Height 170.2 cm (5' 7) 10/03/2023 8:29 AM SENIOR CREDIT ANALYST Body Mass Index 31.86 10/03/2023 8:29 AM SENIOR CREDIT ANALYST Plan of Treatment Health Maintenance Due Date Last Done Comments HIV for age 15-65 01/13/1975 Hepatitis C screening for age 18-79 01/13/1978 COVID-19 vaccine series (2023- season) 2024 10/03/2023, 09/12/2022, 11/15/2021, Additional history exists Influenza for age 50-64 07/11/2024 10/03/20 23, 09/12/2022, 09/10/2021, Additional history exists Depression screening for age 12+ 07/25/2024 07/25/2023, 02/07/2023, 02/07/2023, Additional history exists BMI (ht and wt on same day) for age 18+ 10/03/2024 10/03/2023, 07/25/2023, 02/25/2023, Additional history exists Tetanus booster 07/16/2026 07/16/2016, 01/2007, 10/22/2004 Lipids for age 45-75 10/03/2028 10/03/2023, 09/12/2022, 08/19/2021, Additional history exists Colonoscopy through age 75 09/01/2029 09/01/2019, Tdap Completed 07/16/2016 Zoster (shingles) series for age 50+ Completed 01/26/2020, 11/04/2019 Pneumococcal series for age 6-64 Aged Out No longer eligible based on patient's age to complete this topic Medical Devices Implanted Type Area Floor Layer Tile Device Identifier Shelf Expiration Date Model / Serial / Lot Mesh 3d Max Lg Rt [id number] - [id number] Implanted:Qty: 1 on 02/13/2011 at [facility] Right: Inguinal DAVOL 11/15/2015 [id number] / / [id number] Procedures Procedure Name Priority Date/Time Associated Diagnosis Comments LIPID PANEL Routine 10/03/2023 8:56 AM SENIOR CREDIT ANALYST Mixed hyperlipidemia SCAN-COLONOSCOPY 09/01/2019 2:00 PM CDT from Last 3 Months or Most Recently Relevant to Health Maintenance Results * LIPID PANEL (10/03/2023 8:56 AM SENIOR CREDIT ANALYST) CHOLESTEROL,TOTAL 151 100 - 199 mg/dL 10/03/2023 2:39 PM SENIOR CREDIT ANALYST [facility] Comment: Cholesterol, Total Reference Ranges Desirable <200 mg/dL Borderline 200-239 mg/dL High >=240 mg/dL TRIGLYCERIDES 105 <150 mg/dL 10/03/2023 2:39 PM SENIOR CREDIT ANALYST [employer] [facility] HDL CHOLESTEROL 63 >40 mg/dL 2:39 PM SENIOR CREDIT ANALYST [facility] [employer] [facility] NON-HDL CHOLESTEROL 88 <145 mg/dl 10/03/2023 2:39 PM SENIOR CREDIT ANALYST [facility] [employer] [facility] CHOL/HDL RATIO 2.40 <4.50 10/03/2023 2:39 PM SENIOR CREDIT ANALYST [facility] LDL CHOLESTEROL 67 <=130 mg/dL 10/03/2023 2:39 PM SENIOR CREDIT ANALYST [facility] VLDL CHOLESTEROL 21 <=30 mg/dL 10/03/2023 2:39 PM SENIOR CREDIT ANALYST [facility] PROVIDER ORDERED STATUS RANDOM 10/03/2023 2:39 PM SENIOR CREDIT ANALYST [facility] Blood BLOOD SPECIMEN / Unknown Venipuncture / Unknown 10/03/2023 8:56 AM SENIOR CREDIT ANALYST 10/03/2023 8:56 AM SENIOR CREDIT ANALYST Zachery Christianson MD [facility] [address] [place] [address], [place] * SCAN-COLONOSCOPY (09/01/2019 2:00 PM CDT) Narrative Procedure Note Roger Rojas MD - 09/01/2019 1:04 PM CDT [facility] [address] [place] [address], [address], [place] [address] Patient Name: Simone Wood Gender: Male Exam Date: 09/01/2019 Visit Number: [id number] Age: 59 Years Date of : 1960 Attending MD: Roger Cool MD Medical Record#: [id number] Procedure: Colonoscopy Indications: Colorectal cancer screening Recent history of diverticulitis Referring MD: Zachery Christianson MD Primary MD: Zachery Christianson MD Medications: Admitting Medications: 0.9% Normal Saline at [facility] Intra Procedure Medications: Patient received monitored anesthesia care. Complications: No immediate complications Procedure: An examination of the heart and lungs was performed and found to be withinacceptable limits. The patient was therefore deemed a reasonablecandidate for endoscopy and sedation. The risks and benefits of the procedure were explained to the patient.After obtaining informed consent, the patient received monitoredanesthesia care and I passed the scope without difficulty via the rectum to the cecum. The appendiceal orificeand ic valve were identified. The quality of the prep was good(Miralax/Gatorade/2 tablets Bisacodyl/Magnesium Citrate). This was a complete examination throughout the entire colon. Findings: Polyp location: transverse colon. Quantity: 1. Size: 3 mm. Polyp shape:sessile. Maneuver: polypectomy was performed with a cold snare. Removal: complete. Retrieval: complete. Bleeding: none. Polyp location: descending colon. Quantity: 1. Size: 5 mm. Polyp shape:sessile. Maneuver: polypectomy was performed with a cold snare . Removal: complete. Retrieval: complete. Bleeding: none. Diverticulosis. Location: - descending colon - sigmoid. Quantity:few. No inflammation present. Hemorrhoids. External hemorrhoids without bleeding. Remainder of the exam is normal. Impression: Colorectal polyps Diverticulosis of colon without diverticulitis Hemorrhoids, external Preliminary Plan: Repeat colonoscopy in 5 years if one or more polyp(s) are adenomatous or10 years if all polyps are hyperplastic. Pathology Results: A: COLON, TRANSVERSE, POLYP: 1. Tubular adenoma 2. Negative for high grade dysplasia 3. Per the colonoscopy report: a. Polyp size: 3 mm b. Resection: Complete c. Retrieval: Complete B: COLON, DESCENDING, POLYP: 1. Tubular adenoma 2. Negative for high grade dysplasia 3. Per the colonoscopy report: a. Polyp size: 5 mm b. Resection: Complete c. Retrieval: Complete MICROSCOPIC A: Performed B: Performed Electronically signed by: Tobi Alba MD Orders Instruction(s)/Education: Instruction/Education Timeframe Assessment Colon Cancer Prevention K63.5 Colon Polyps K63.5 Diverticulosis/Diverticulitis K63.5 Hemorrhoids K63.5 High Fiber Diet K63.5 Final Plan: Return for a colonoscopy in 5 years. We will attempt to contact you at appropriate intervals via U.S. mail. Wemay not be able to find you or contact you at that time, therefore youshould know that the responsibility for following our recommendation restswith you. If you don't hear from us at the time your procedure is due,please contact our office to schedule an appointment. If your contactinformation should change, please contact our office so that we can updateyour record. _Electronically signed by: Roger Cool MD 09/01/2019 cc: Zachery Christianson MD cc: Zachery Christianson MD Roger Rojas MD OTHER from Last 3 Months or Most Recently Relevant to Health Maintenance Advance Directives * Full Code (Latest Code Status on File) Date Activated Date Inactivated Comments 05/19/2019 2:20 PM 05/21/2019 5:24 PM * Full Code Date Activated Date Inactivated Comments 05/19/2019 2:20 PM 05/19/2019 2:20 PM * Full Code Date Activated Date Inactivated Comments 02/13/2011 7:06 AM 02/13/2011 2:28 PM Care Teams Education Coordinator Relationship Specialty Start [place] [address] [place] [address] PCP - General Family Practice 03/09/18
--- OUTSIDE RECORDS SUMMARY | 2024-08-17 07:39 | XMS_ITS | Continuity of Care Document ---
Author Organization [facility] Address [address] [address] [place] [address] Phone Care Team Providers Care Grounds Maintenance Worker Name Role Phone Cynthia GEE, Rosalie Unavailable [...] Copied on Encounter Offic/outpt E&m Estab Low-mod [facility], [address] [address], [place], [place], [id number], [place] tel:[phone] [facility] GI Symptoms or Concerns (chief complaint) Epigastric painAcute gastritis, presence of bleeding unspecified, unspecified gastritis type 2 [address]ins. [address] [place] [address], [id number], [place]. tel:[phone] Referring Provider: Referral Self, USE FOR SELF REFERRALS. [facility] [place], [address] [address], [place], [place], [id number], [place] tel:[phone] [facility] GI Symptoms or Concerns (chief complaint) Epigastric painEpigastri c pain 2 Namrata Pollard. [address], [id number], [place]. tel:[phone] Referring Provider: Referral Self, USE FOR SELF REFERRALS. Offic/outpt E&m Estab Mod-hi 2 [facility], [address] [address], [place], [place], [id number], [place] tel:[phone] [facility] GI Symptoms or Concerns (chief complaint) Epigastric painNauseaCon stipation, unspecified constipation type 2 Cynthia Wiggins. [address] [place] [address], [id number], [place]. tel:[phone] Referring Provider: Referral Self, USE FOR SELF REFERRALS. Established Level 3 or 15-24 min [facility], [address] [address], [address] [address], [id number], [place] tel:[phone] [facility] GI Symptoms or Concerns (chief complaint) LUQ painLLQ pain 0 Diann Mendoza. [address] [place] [address], [id number], [place]. tel:[phone] Referring Provider: Zachery Tyler, [address] [place], [address]. tel:[phone] [facility], [address] [address], [address], [id number], [place] tel:[phone] [facility] Irregular Z line of esophagusHiat al herniaGastrod uodenitis without bleedingDuode nitis without bleedingAbnor mal findings on dx imaging of prt digestive tractUnspecif ied abdominal painDisease of esophagus, unspecified 0 No Information Referring Provider: Referral Self, USE FOR SELF REFERRALS. Established Level 4 or 25-39 min [facility], [address] [address], [address], [id number], [place] tel:[phone] [facility] GI Symptoms or Concerns (chief complaint) LUQ painLLQ painBloatingD ecreased appetite 0 Diann Mendoza. [address] [place] [address], [id number], [place]. tel:[phone] Referring Provider: Zachery Tyler, [address] [place], [address]. tel:[phone] [facility], [address] [address], [address], [id number], [place] tel:[phone] [facility] No Information 0 Carina Mckeon. [address] [place] [address], [id number], [place]. tel:[phone] Offic/outpt E&m Estab Mod-hi 2 [facility] [place], [address] [address], [address], [id number], [place] tel:[phone] [facility] Comment (chief complaint) Dvrtclos of lg int w/o perforation or abscess w/o bleeding 0 Dereje Nguyen. [address] [facility], [address], [id number], [place]. [phone] Referring Provider: Referral Self, USE FOR SELF REFERRALS. [facility], [address] [address], [place], [place], [id number], [place] tel:[phone] [facility] No Information 0 Carina Mckeon. [address], [id number], [place]. [phone] [facility], [address] [address], [place], [id number], [place] tel:[phone] [facility] Colorectal polypsDiverti culosis of colon without diverticuliti sHemorrhoids, externalEncou nter for screening for malignant neoplasm of colonBenign neoplasm of transverse colonBenign neoplasm of descending colonDvrtclos of lg int w/o perforation or abscess w/o bleedingBenig n neoplasm of descending colonBenign neoplasm of transverse colon 9 Travon Duran. [address], [id number], [place]. tel:[phone] Referring Provider: Zachery Tyler, [address] [place], [address]. tel:[phone] [facility], [address] [address], [place], [id number], [place] tel:[phone] [facility] No Information 9 Heather Obregon. [address] [facility], [address], [id number], [place]. tel:[phone] Referring Provider: Zachery Tyler, [address] [place], [address]. tel:[phone] Offic/outpt E&m New Mod-hi [facility], [address] [address], [place], [place], [id number], [place] tel:[phone] [facility] GI Symptoms or Concerns (chief complaint) Chest pain, unspecified typeDietary counseling and surveillanceE levated blood-pressur e reading, w/o diagnosis of htn 9 Joana Dalal. [address] [facility], [facility] [address], [place], [place], [id number], [place]. tel:[phone] Referring Provider: Zachery Tyler, [address] [place], [address]. 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 He has generally been in pretty good [...] message me with any questions or concerns [phone]. Related to Epigastric pain -Patient's symptoms have [...] mesentery on 08/20/20 CT abdomen/pelvis performed in [place], [place]-Continue pantoprazole 40 mg daily-Minimize use of diclofenac and other [id number] in 2 months, after CT enterography Related [...] benefit from being on a low-dose PPI half-way. We also discussed avoiding GI irritants such as NSAIDs and alcohol. The patient also had constipation which was likely secondary to opioids following surgery. He has had improved bowel regularity since his bowel cleanse and starting a maintenance regimen daily. 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 He is next due for a colonoscopy in 2023. Mental Status Date Cognitive Assessment Orientation - [place] ed to time, place, person, situation. Patient Care Teams Name Effective Dates (start - stop) Status Members No Information
[2024-08-17 07:42] LABS: Slide Review Reflex No
[2024-08-17 07:48] LABS: Chloride* 108 mmol/L (96-114); Potassium* 4.3 mmol/L (3.6-5.1); Sodium* 137 mmol/L (135-149)
[2024-08-17 07:50] LABS: Creatinine* 0.9 mg/dL (0.5-1.5); Est. Creatinine Clearance* 69.77; Estimated Glomerular Filt Rate 95 ml/min
[2024-08-17 07:51] LABS: Anion Gap 8 mEq/L (7-15); Blood Urea Nitrogen* 19 mg/dL (7-30); Calcium* 9.2 mg/dL (8.4-10.6); Carbon Dioxide* 21 mmol/L (20-32); Glucose* 107 mg/dL (60-115)
[2024-08-17 08:25] VITALS: BP 126/84; PULSE 82; RESP 16; O2SAT 98
[2024-08-17 08:36] LABS: Appearance Urine Clear (Clear); Bilirubin Urine Negative (Negative); Blood Urine Negative (Negative); Color Urine Yellow (Yellow); Glucose Urine Negative (Negative); Ketones Urine Negative (Negative); Leukocyte Esterase Urine Negative (Negative); Nitrite Urine Negative (Negative); Protein Urine Negative (Negative); Urobilinogen Urine 0.2 (0.2-1.0); pH Urine 5.5 (5.0-8.5)
[2024-08-17 08:44] LABS: RBC Urine 0-2 (0-2); WBC Urine 0-2 (0-5)
== END 2024-08-17 08:41 | disposition home or self-care (01) ==
PROVIDERS: Emergency Provider Family Medicine; PCP Family Medicine
DX: R10.9 Unspecified abdominal pain (principal); E27.8 Other specified disorders of adrenal gland
CPT/HCPCS: 36415; 74177; 80048; 81001; 85025; 99284; 99285; Q9967

== ENCOUNTER 2025-02-21 19:01 | Emergency (ER) | payer MEDICARE, SELFPAY ==
--- OUTSIDE RECORDS SUMMARY | 2025-02-21 19:03 | XMS_ITS | Clinical Summary ---
Author Organization [facility] Address [address] [address] Phone Care Team Providers Care Parachute Supervisor Name Role Phone Unavailable Primary Care Provider Unavailabl e Allergies No known active allergies Social History Tobacco Use Types Packs/Day Years Used Date Smoking Tobacco: Never Assessed Sex and Gender Information Value Date Recorded Sex Assigned at Not on file Legal Sex Male 9:17 AM CDT Gender Identity Not on file Sexual Orientation Not on file Last Filed Vital Signs Vital Sign Reading Time Taken Comments Blood Pressure 134/77 08/20/2020 11:46 AM CDT Pulse 64 08/20/2020 11:46 AM CDT Temperature 36.2 C (97.1 F) 08/20/2020 9:21 AM CDT Respiratory Rate 16 08/20/2020 11:46 AM CDT Oxygen Saturation 98% 08/20/2020 9:21 AM CDT Inhaled Oxygen Concentration - - Weight 99.8 kg (220 lb) 08/20/2020 9:21 AM CDT Height - - Body Mass Index - - Plan of Treatment Not on file Insurance [facility]
--- OUTSIDE RECORDS SUMMARY | 2025-02-21 19:03 | XMS_ITS | Clinical Summary ---
Author Organization [facility] Address [address], [place] [address] Care Team Providers Care Medical Geneticist Name Role Phone Zachery Christianson MD Primary Care Provider [phone] Source Comments You are receiving this document as you are listed as the primary care provider,follow-up provider, or the patient has been referred to you for consultation.This is in compliance with the Medicare and[facility] Cent[facility] EHR Incentive Program,which states Providers who transition their patient to another setting of careor provider of care or refers their patient to another provider of care shouldprovide summary care record for each transition of care or referral. [facility] Allergies No known active allergies Medications traZODone (DESYREL) 100 MG tablet Take 200 mg by mouth daily at bedtime. 12/14/2019 Active aspirin 81 MG tablet Take 81 mg by mouth daily. Active PANTOPRAZOLE SODIUM OR Active ATORVASTATIN CALCIUM OR Active Social History Tobacco Use Types Packs/Day Years Used Date Smoking Tobacco: Never Assessed Sex and Gender Information Value Date Recorded Sex Assigned at Not on file Legal Sex Male 3:44 AM CDT Gender Identity Not on file Sexual Orientation Not on file Plan of Treatment Health Maintenance Due Date Last Done Comments Colon Cancer Screening Plan Due 1960 Hep C Screening (Preventive Services) 1960 PSA Screening Discussion 1960 Adult Preventive Visit 01/13/1978 Cholesterol 01/13/1995 Pneumococcal 50+ Yrs (1 of 1 - PCV) 01/13/2010 COVID-19 Vaccine (2023-2 5 season) 2024 02/01/2021 Influenza (#1) 2024 [...] on patient's age to complete this topic Meningococcal B Aged Out No longer el igible based on patient's age to complete this topic Insurance [facility] Care Teams Medical Geneticist Relationship Specialty Start [place] [address] [place] [address] PCP - General Family Practice 01/19/20
[2025-02-21 19:18] VITALS: BP 131/89; PULSE 66; RESP 18; TEMP 36.8; O2SAT 96; BMI 32.1
--- NOTE | 2025-02-21 20:53 | ED.GENADULT ---
HPI - General Adult General Chief complaint: Back Injury/Pain Stated complaint: pains in right side of body Time Seen by Provider: 02/21/25 20:37 History of Present Illness HPI narrative: Patient presents to the emergency department complaining of right lower back pain. Patient states this started at about 1030. Pain gets worse with movement he notes walking in particular. Pain is relieved when he sits still. Pain has never happened before . Denies any troubles going to the bathroom . Denies fever. 65-year-old man presenting to the emergency department Hurts primarily when he steps down on the right foot but can really escalate. Deep in the right flank wraps around sharply into the front. Really just escalated this morning No hematuria or dysuria. He doubts he could leave a urine sample just citing prostate problems. No injury. No fever. No rashes. No radiation to the extremities. Related Data Home Medications ?Medication ?Instructions ?Recorded ?Confirmed No Known Home Medications 02/21/25 02/21/25 Allergies Allergy/AdvReac Type Severity Reaction Status Date / Time No Known Drug Allergies Allergy Verified 02/21/25 19:26 Review of Systems Status of ROS: Reports: 6 or more systems reviewed and unremarkable except as noted in History and below [facility] Social History Smoking Status: Never smoker How often do you have a drink containing alcohol: 2-4 times a month AUDIT-C Alcohol total score: 2 Non-prescribed substance use: denies use Exam Narrative: Exam Narrative: Pleasant. NAD. Breathing easily. Difficult to reproduce pain. Seems deep in the right flank posterior in little superior to the posterior iliac crest. Straight leg raise is negative. Has good truncal rotation without exacerbation of pain. Can laterally bend and flex forward and backwards without worsening this pain. Abdomen otherwise is soft and nontender. No inguinal swelling noted. Extremities are well perfused without edema. Const: Vital Signs, click to edit/add: Vital Signs - 24 hr 02/21/25 19:18 02/21/25 21:24 Temperature 98.2 F Pulse Rate [Right Pulse Oximeter] 66 Respiratory Rate 18 16 Blood Pressure [Ri ght Upper Arm] 131/89 Pulse Oximetry 96 Oxygen Delivery Me thod Room Air Documenting provider has reviewed patient's vital signs: yes Course Vital Signs Vital signs: Initial Vital Signs Temperature 98.2 F 02/21/25 19:18 Temperature Source Temporal Artery Scan 02/21/25 19:18 Pulse Rate 66 02/21/25 19:18 Pulse Rhythm Regular 02/21/25 19:18 Pulse Strength 3+ Normal 02/21/25 19:18 Respiratory Rate 18 02/21/25 19:18 Blood Pressure 131/89 02/21/25 19:18 Blood Pressure Mean 103 02/21/25 19:18 Blood Pressure Position Sitting 02/21/25 19:18 Pulse Oximetry 96 02/21/25 19:18 Oxygen Delivery Method Room Air 02/21/25 19:18 Vital Signs Temperature 98.2 F 02/21/25 19:18 Pulse Rate 66 02/21/25 19:18 Respiratory Rate 18 02/21/25 19:18 Blood Pressure 131/89 02/21/25 19:18 Pulse Oximetry 96 02/21/25 19:18 Oxygen Delivery Method Room Air 02/21/25 19:18 Temperature 98.2 F 02/21/25 19:18 Pulse Rate 66 02/21/25 19:18 Respiratory Rate 16 02/21/25 21:24 Blood Pressure 131/89 02/21/25 19:18 Pulse Oximetry 96 02/21/25 19:18 Oxygen Delivery Method Room Air 02/21/25 19:18 Medical Decision Making MDM Narrative Medical decision making narrative: Has been a long time in the emergency department. One wonders whether not this might be ureteral stone and colic. Does not appear to be in the spinal problem as truncal movement does not exacerbate. No SI joint area discomfort. Otherwise appears well. Did discuss further evaluation including CT imaging. He would prefer to defer at this point and potentially leave a urinalysis which might prompt further evaluation or return if really needed for pain management or other symptoms are worsening. See patient discharge plan for further discussion Consider taking 400-600 mg of ibuprofen 3 times daily maybe with a little food. Stay well-hydrated. As discussed, let's see how it goes over the next 24-48 hours. Return for marked increase in persistent pain, obvious hematuria, associated fever. You are also welcome to bring this urinalysis in when you think you can produce some urine. I am here till at least 8 in the morning. Medical Records Medical records reviewed: Yes I reviewed the patient's medical records Discharge Plan Discharge Clinical Impression: Acute flank pain Patient Disposition: Home w/ Parent or Adult Condition: Stable Additional Instructions: Consider taking 400-600 mg of ibuprofen 3 times daily maybe with a little food. Stay well-hydrated. As discussed, let's see how it goes over the next 24-48 hours. Return for marked increase in persistent pain, obvious hematuria, associated fever. You are also welcome to bring this urinalysis in when you think you can produce some urine. I am here till at least 8 in the morning. Prescriptions: No Action No Known Home Medications Follow Up/Referrals: Zachery Christianson MD [Primary Care Provider] - Stand Alone Forms: Factual Info Instructions
--- OUTSIDE RECORDS SUMMARY | 2025-02-21 21:20 | XMS_ITS | Clinical Summary ---
Author Organization [facility] Address [address] [address] Phone Care Team Providers Care Eyelet Riveter Name Role Phone Unavailable Primary Care Provider [...] Plan of Treatment Not on file Insurance [facility] Commercial Address[facility] [address] [place] [address]
--- OUTSIDE RECORDS SUMMARY | 2025-02-21 21:20 | XMS_ITS | Clinical Summary ---
Author Organization [employer] [facility] [employer] [facility] Address [address] [place] [id number] Care Team Providers Care Supervisor Network Control Operators Name Role Phone Zachery Christianson MD Primary Care Provider Allergies No known active allergies Medications cholecalciferol (vitamin D3) (VITAMIN D3 ORAL) Take by mouth. Active mirtazapine 15 mg tabletIndicatio ns:Insomnia, idiopathic Take 1 Tablet (15 mg) by mouth at bedtime. 30 Tablet 11 5 Active amitriptyline 25 mg tabletIndicatio ns:Insomnia, idiopathic Take 1 Tablet (25 mg) by mouth at bedtime. 90 Tablet 3 4 02/15/20 25 Discontinu ed(*Med complete/R egimen complete/L evel of care change) Active Problems Problem Noted Date Diagnosed Date S/P total knee replacement, left, 2021 3 Supraventricular tachycardia 04/23/2021 Occipital stroke, 05/28, secondary diplopia 05/28 Overview (05/14/2020): 05/22/19 Obesity (BMI 30.0-34.9) 05/19/2019 Routine health maintenance 09/11/2018 Overview (11/26/2024): Colonoscopy: 12/04, recheck 3 years depression 06/01/2018 Chronic insomnia 05/02/2017 Seasonal allergies Coronary artery disease Resolved Problems Problem Noted Date Diagnosed Date Resolved Date Left adrenal mass 05/14/2020 10/18/2024 Overview (05/14/2020): Incidentally noted 2018. SACHI (obstructive sleep apnea) 08/15/2019 08/31/2019 Diarrhea 05/20/2019 05/14/2020 Chest pain 05/19/2019 05/14/2020 cataract of both eyes 10/16/20172019 Right inguinal hernia 02/12/20112019 Abnormal ECG 10/29/2019 Encounters Date Type Department Care Team Description 02/14/2025 9:25 AM CDT Office Visit [address] [address] Zachery Christianson MD Pre-Op Exam (DOS: 03/04/25, [place] [facility] Procedure for removal of ulcerated hypertrophied anal papilla, Dr. Guzman, [facility], fax: [phone]) 02/14/2025 Orders Only [address] [address] Zachery Christianson MD 1 scan: (1-Ord) 02/14/2025 02/14/2025 Travel 02/11/2025 Travel from Last 3 Months Immunizations Immunization Administration Dates Next Due COVID-19 VACCINE SPIKEVAX (M ODERNA 50MCG/0.5ML) 12YO+ PFS 10/18/2024,10/03/2023 COVID-19 vaccine (Moderna 100mcg/0.5mL) PF, MDV 03/01/2021,02/01/2021 COVID-19 vaccine (Moderna 50mcg/0.5mL) 12YO+ BIVALENT PF, MDV 09/12/2022 COVID-19 vaccine (Moderna [place] 50mcg/0.25mL) PF, MDV 11/15/2021 INFLUENZA, IIV3 PF (AGE >= 6 MO) 10/18/2024 Influenza, IIV3 (Age >=3 years) 10/22/2004 Influenza, [...] Answer Date Recorded PHQ-2 TOTAL SCORE 0 10/18/2024 Social Connections Answer Date Recorded Do you often feel lonely or isolated from those around you? 0 09/29/2024 Financial Resource Strain Answer Date R ecorded Difficulty of Paying Living Expenses 3 09/29/2024 Difficulty of Paying Living Expenses Not on file 09/29/2024 Food Insecurity Answer Date Recorded Do you worry your food will run out before you are able to buy more? 1 09/29/2024 Transportation Needs Answer Date Record ed Does lack of transportation keep you from medica l appointments? 1 09/29/2024 Does lack of transportation keep you from work, meetings or getting things that you need? 1 09/29/2024 Housing Stability Answer Date Recorded What is your housing situation today? 1 09/29/2024 Utilities Answer Date Recorded Do you have trouble paying f or utilities (for example, heat, electricity, water, phone)? 1 09/29/2024 Sex and Gender Information Value Date Recorded Sex Assigned at Male 01/29/2021 5:27 AM CDT Legal Sex Male 5:48 AM COMPONENT ASSEMBLER SUPERVISOR Gender Identity Male 01/29/2021 5:28 AM CDT Sexual Orientation Straight 01/29/2021 5: 28 AM CDT Occupation Industry Job Start Date Job End Date Not on file Not on file Not on file Not on file Obstetrics History Last Filed Vital Signs Vital Sign Reading Time Taken Comments Blood Pressure 112/82 02/14/2025 9:23 AM CDT Pulse 68 02/14/2025 9:23 AM CDT Temperature 36.6 C (97.8 F) 02/14/2025 9:23 AM CDT Respiratory Rate 16 02/07/2023 11:00 AM CDT Oxygen Saturation 93% 02/07/2023 1:34 PM CDT Inhaled Oxygen Concentration - - Weight 98.2 kg (216 lb 6.4 oz) 02/14/2025 9:23 A M CDT Height 167.6 cm (5' 6) 10/18/2024 12:22 PM COMPONENT ASSEMBLER SUPERVISOR Body Mass Index 34.93 10/18/2024 12:22 PM COMPONENT ASSEMBLER SUPERVISOR Plan of Treatment Health Maintenance Due Date Last Done Comments HIV for age 15-65 01/13/1975 Hepatitis C screening for ag e 18-79 01/13/1978 Pneumococcal series for age 50+ (1 of 2 - PCV) 01/13/1979 RSV vaccine for adults or (1 - Risk 60-74 years 1-dose series) 2020 AAA screening age 65-74 01/13/2025 10/18/20, 03/26/2021, 10/28/2019, Additional history exists Medicare Wellness for age 65+ 01/13/2025 COVID-19 vaccine series (2023- season) 2025 10/18/2024, 10/03/2023, 09/12/2022, Additional history exists BMI (ht and wt on same day) for age 18+ 10/18/2025 10/18/2024, 10/03/2023, 07/25/2023, Additional history exists Depression screening for age 12+ 10/18/2025 10/18/2024, 10/18/2024, 07/25/2023, Additional history exists Tetanus booster 07/16/2026 07/16/2016, 03/0 01/2007, 10/22/2004 Lipids for age 45-75 10/18/2029 10/18/2024, 10/03/2023, 09/12/2022, Additional history exists Colonoscopy through age 75 11/23/203411/23, 09/01/2019, 09/29/2009 Tdap Completed 07/16/2016 Zoster (shingles) series for age 50+ Completed 01/26/2020, 11/04/2019 Influenza Vaccine Completed 10/18/2024, , 09/12/2022, Additional history exists Medical Devices Implanted Type Area Cardiac Cath Tech Device Identifier Shelf Expiration Date Model / Serial / Lot Mesh 3d Max Lg Rt 4.3inx6.3in - [id number] Implanted:Qty: 1 on 02/13/2011 at [facility] Right: Inguinal DAVOL 11/15/2015 [id number] / / [id number] Procedures Procedure Name Priority Date/Time Associated Diagnosis Comments CBC WITH AUTO DIFFERENTIAL Routine 02/14/2025 9:54 AM CDT Pre-op exam BASIC METABOLIC PANEL Routine 02/14/2025 9:54 AM CDT Pre-op exam EKG 12 LEAD Routine 02/14/2025 12:00 AM CDT Pre-op exam SCAN-COLONOSCOPY 11/23/2024 8:30 AM COMPONENT ASSEMBLER SUPERVISOR LIPID PANEL Routine 10/18/2024 12:51 PM COMPONENT ASSEMBLER SUPERVISOR Routine health maintenance CT ABDOMEN PELVIS W STAT 10/18/2022 7 :47 PM COMPONENT ASSEMBLER SUPERVISOR from Last 3 Months or Most Recently Relevant to Health Maintenance Results * (ABNORMAL) CBC AND DIFFERENTIAL (02/14/2025 9:54 AM CDT) WHITE BLOOD CELL COUNT 5.7 3.8 - 10.8 Thousand/u L [facility] RED BLOOD CELL COUNT 5.77 4.20 - 5.80 Million/uL [facility] HEMOGLOBIN 17.4(H) 13.2 - 17.1 g/dL [facility] HEMATOCRIT 51.5(H) 38.5 - 50.0 % [facility] MCV 89.3 80.0 - 100.0 fL [facility] MCH 30.2 27.0 - 33.0 pg [facility] MCHC 33.8 32.0 - 36.0 g/dL [facility] Comment: For adults, a slight decrease in the calculated MCHC value (in the range of 30 to 32 g/dL) is most likely not clinically significant; however, it should be interpreted with caution in correlation with other red cell parameters and the patient's clinical condition. RDW 13.8 11.0 - 15.0 % [facility] PLATELET COUNT 221 140 - 400 Thousand/u L [facility] MPV 9.4 7.5 - 12.5 fL [facility] ABSOLUTE NEUTROPHILS 2,970 1,500 - 7,800 cells/uL [facility] ABSOLUTE LYMPHOCYTES 2,132 850 - 3,900 cells/uL [facility] ABSOLUTE MONOCYTES 467 200 - 950 cells/uL [facility] ABSOLUTE EOSINOPHILS 103 15 - 500 cells/uL [facility] ABSOLUTE BASOPHILS 29 0 - 200 cells/uL [facility] NEUTROPHILS 52.1 % [facility] LYMPHOCYTES 37.4 % [facility] MONOCYTES 8.2 % [facility] EOSINOPHILS 1.8 % [facility] BASOPHILS 0.5 % [facility] Blood BLOOD SPECIMEN / Unknown 02/14/2025 9:54 AM CDT 02/14/2025 9:56 AM CDT Narrative [facility] - 02/15/2025 4:21 AM CDT FASTING:NO FASTING: NO us Zachery Christianson MD HEMATOLOGY Final Result [facility] [address] [place] [address], [place] [phone] [facility] [address] [place] [address] * BASIC METABOLIC PANEL (02/14/2025 9:54 AM CDT) Pathologist [facility] GLUCOSE 99 65 - 139 mg/dL [facility] Comment: Non-fasting reference interval UREA NITROGEN (BUN) 19 7 - 25 mg/dL [facility] CREATININE 1.18 0.70 - 1.35 mg/dL [facility] EGFR 68 > OR = 60 mL/min/1. 73m2 [facility] BUN/CREATININE RATIO SEE NOTE: 6 - 22 (calc) [facility] Comment: Not Reported: BUN and Creatinine are within reference range. SODIUM 140 135 - 146 mmol/L [facility] POTASSIUM 4.7 3.5 - 5.3 mmol/L [facility] CHLORIDE 104 98 - 110 mmol/L [facility] CARBON DIOXIDE 28 20 - 32 mmol/L [facility] ELECTROLYTE BALANCE 8 7 - 17 mmol/L (calc) [facility] CALCIUM 9.8 8.6 - 10.3 mg/dL [facility] Blood BLOOD SPECIMEN / Unknown 02/14/2025 9:54 AM CDT 02/14/2025 9:56 AM CDT Narrative [facility] - 02/15/2025 4:38 AM CDT FASTING:NO FASTING: NO us Zachery Christianson MD CHEMISTRY Final Result [facility] [address] [place] [address], [facility] [address] [place] [address] * EKG 12 LEAD (02/14/2025 12:00 AM CDT) us Zachery Christianson MD EKG ORD Final Result * SCAN-COLONOSCOPY (11/23/2024 8:30 AM COMPONENT ASSEMBLER SUPERVISOR) Narrative Procedure Note Braeden Suh DO - 11/23/2024 7:49 AM CST [facility] [address] [facility], [address], [place] [address] Patient Name: Simone Wood Gender: Male Exam Date: 11/23/2024 Visit Number: [id number] Age: 64 Years Date of : 1960 Attending MD: Braeden Suh DO Medical Record#: [id number] Procedure: Colonoscopy Indications: Previous adenomatous polyp(s) Last colonoscopy in 2019 Referring MD: Referral Self Primary MD: Zachery Christianson MD Medications: Admitting Medications: 0.9% Normal Saline at TKO Intra Procedure Medications: Patient received monitored anesthesia care. Complications: No immediate complications Procedure: An examination of the heart and lungs was performed and found to be withinacceptable limits. . The patient was therefore deemed a reasonablecandidate for endoscopy and sedation. The risks and benefits of the procedure were explained to the patient.After obtaining informed consent, the patient received monitoredanesthesia care and I passed the scope without difficulty via the rectum to the ileum. The appendiceal orificeand ic valve were identified. The scope was retroflexed during theexamination The quality of the prep was good (Miralax/Gatorade/2 tabletsBisacodyl/Magnesium Citrate). This was a complete examination throughout the entire colon. Findings: Polyp location: transverse colon. Quantity: 1. Size: 6 mm. Polyp shape:sessile. Maneuver: polypectomy was performed with a cold snare. Removal: complete. Retrieval: complete. Bleeding: none. Polyp location: sigmoid. Quantity: 2. Size: 4 mm, 5 mm. Polyp shape:sessile. Maneuver: polypectomy was performed with a cold snare. Removal: complete. Retrieval: complete. Bleeding: none. Diverticulosis. Location: - descending colon - sigmoid. Description:mild. Size: small. Large hypertrophied lesion with overlying ulceration was found in the analcanal. This appeared to extend distal to the dentate line. Remainder of the exam is normal. Impression: Colorectal polyp detected on colonoscopy Diverticulosis of colon without diverticulitis impression comments: - Normal terminal ileum - 3 subcentimeter polyps removed - Mild left-sided diverticulosis - Projection at the anal canal with overlying ulceration. May representhypertrophied anal papillae but malignancy cannot be excluded. Wouldrecommend further evaluation with colorectal surgery Preliminary Plan: The patient and their physician will receive a copy of the pathologyreport as well as pathology-based recommendations for future screening orsurveillance. Recommendation Comments: - Await pathology - Referral to colorectal surgery for further evaluation of lesion in analcanal Pathology Results: A: COLON, TRANSVERSE, POLYP: 1. Tubular adenoma 2. Negative for high grade dysplasia 3. Per the colonoscopy report: a. Polyp size: 6 mm b. Resection: Complete c. Retrieval: Complete B: COLON, SIGMOID, POLYPS: 1. Tubular adenomas (2) 2. Negative for high grade dysplasia 3. Per the colonoscopy report: a. Polyp sizes: 4 mm and 5 mm b. Resection: Complete c. Retrieval: Complete MICROSCOPIC A: Performed B: Performed Electronically signed by: Micaela Fox MD Interpreted at [facility], [address] [place] [id number] Orders Instruction(s)/Education: Instruction/Education Timeframe Assessment Colon Cancer Prevention K57.30 Colon Polyps K57.30 Diverticulosis/Diverticulitis K57.30 High Fiber Diet K57.30 Follow-up visit/Referral: Order Comments referred to Colon and Rectal Surgery Rectal lesion Final Plan: Repeat colonoscopy in 3 years. We will attempt to contact you [...] we can updateyour record. _Electronically signed by: Braeden Suh DO 11/23/2024 cc: Zachery Christianson MD Braeden Suh DO OTHER Final Res ult * LIPID PANEL (10/18/2024 12:51 PM COMPONENT ASSEMBLER SUPERVISOR) CHOLESTEROL, TOTAL 152 <200 mg/dL [facility] HDL CHOLESTEROL 64 > OR = 40 mg/dL [facility] TRIGLYCERIDES 124 <150 mg/dL [facility] LDL-CHOLESTEROL 67 mg/dL (calc) [facility] Comment: Reference range: <100 Desirable range <100 mg/dL for primary prevention; <70 mg/dL for patients with CHD or diabetic patients with > or = 2 CHD risk factors. LDL-C is now calculated using the Marguerite calculation, which is a validated novel method providing better accuracy than the Friedewald equation in the estimation of LDL-C. Edwin MASCORRO et al. APOORVA. 2013;310(19): 0895-6082 (http://education.RichRelevance/faq/NKX775) CHOL/HDLC RATIO 2.4 <5.0 (calc) [facility] NON HDL CHOLESTEROL 88 <130 mg/dL (calc) [facility] Comment: For patients with diabetes plus 1 major ASCVD risk factor, treating to a non-HDL-C goal of <100 mg/dL (LDL-C of <70 mg/dL) is considered a therapeutic option. Blood BLOOD SPECIMEN / Unknown 10/18/2024 12:51 PM COMPONENT ASSEMBLER SUPERVISOR 10/18/2024 12:53 PM COMPONENT ASSEMBLER SUPERVISOR Narrative [facility] - 10/19/2024 5:03 AM COMPONENT ASSEMBLER SUPERVISOR FASTING:YES FASTING: YES us Zachery Christianson MD CHEMISTRY Final Result [facility] [address] [place] [address], [facility] [address] [place] [address] * CT ABDOMEN PELVIS W (10/18/2022 7:47 PM COMPONENT ASSEMBLER SUPERVISOR) Anatomical Region Laterality Modality Abdomen, Pelvis, AORTA, LIVER, SPLEEN Computed Tomography 10/18/2022 8:32 PM COMPONENT ASSEMBLER SUPERVISOR Impressions 10/18/2022 8:32 PM COMPONENT ASSEMBLER SUPERVISOR 1. Few prominent nondilated loops of small bowel in the left mid abdomen, nonspecific, may reflect enteritis. 2. Bowel is not obstructed. Normal appendix. Scattered colonic diverticulosis, without evidence of acute diverticulitis. 3. Mild prostatomegaly. Correlate with serum PSA. Please note that all CT scans at this facility use dose modulation, iterative reconstruction, and/or weight-based dosing when appropriate to reduce radiation dose to as low as reasonably achievable. Dictated by Caty Barton MD @ 10/18/2022 8:32:28 PM (Electronically Signed) Narrative 10/18/2022 8:32 PM COMPONENT ASSEMBLER SUPERVISOR For Patients: As a result of the Cures Act, medical imaging exams and procedure reports are released immediately into your electronic medical record. You may view this report before your referring provider. If you have questions, please contact your health care provider. INDICATION: Abdominal pain, chills, fever, vomiting. TECHNIQUE: CT abdomen and pelvis acquired with 100 mL Omnipaque 300 contrast. COMPARISON: CT abdomen/pelvis dated 10/28/2019. FINDINGS: Lower chest: Calcified granuloma in the right lower lobe. No focal consolidation. Liver: Scattered punctate calcified granulomas. No suspicious focal hepatic lesion. Gallbladder and bile ducts: Unremarkable. Pancreas: Unremarkable. Spleen: Punctate calcified granulomas. Splenule is noted. Adrenal glands: Stable 2.5 cm left adrenal nodule, previously characterized as an adenoma. Kidneys: Kidneys enhance symmetrically, without hydronephrosis. Retroperitoneum: No lymphadenopathy. Bowel and mesentery: Bowel is nonobstructed. Scattered colonic diverticulosis, without evidence of acute diverticulitis. Normal appendix. No significant ascites. There are few prominent nondilated loops of small bowel in the left mid abdomen. No pneumoperitoneum. Bladder: Unremarkable for degree of distension. Reproductive organs: Mild prostatomegaly. Pelvic lymph nodes: No lymphadenopathy. Vessels: Unremarkable. Abdominal wall: No acute abdominal wall abnormality. Bones: Multilevel degenerative changes of the spine. No suspicious/aggressive focal osseous lesion. Bilateral L5 pars defects. Procedure Note Caty Barton MD - 10/18/2022 For Patients: As a result of the Century Cures Act, medical imagingexams and procedure reports are released immediately into your electronicmedical record. You may view this report before your referring provider.If you have questions, please contact your health care provider. INDICATION: Abdominal pain, chills, fever, vomiting. TECHNIQUE: CT abdomen and pelvis acquired with 100 mL Omnipaque 300 contrast. COMPARISON: CT abdomen/pelvis dated 10/28/2019. FINDINGS: Lower chest: Calcified granuloma in the right lower lobe. No focalconsolidation. Liver: Scattered punctate calcified granulomas. No suspicious focalhepatic lesion. Gallbladder and bile ducts: Unremarkable. Pancreas: Unremarkable. Spleen: Punctate calcified granulomas. Splenule is noted. Adrenal glands: Stable 2.5 cm left adrenal nodule, previouslycharacterized as an adenoma. Kidneys: Kidneys enhance symmetrically, without hydronephrosis. Retroperitoneum: No lymphadenopathy. Bowel and mesentery: Bowel is nonobstructed. Scattered colonicdiverticulosis, without evidence of acute diverticulitis. Normal appendix.No significant ascites. There are few prominent nondilated loops of smallbowel in the left mid abdomen. No pneumoperitoneum. Bladder: Unremarkable for degree of distension. Reproductive organs: Mild prostatomegaly. Pelvic lymph nodes: No lymphadenopathy. Vessels: Unremarkable. Abdominal wall: No acute abdominal wall abnormality. Bones: Multilevel degenerative changes of the spine. Nosuspicious/aggressive focal osseous lesion. Bilateral L5 pars defects. IMPRESSION: 1. Few prominent nondilated loops of small bowel in the left mid abdomen,nonspecific, may reflect enteritis. 2. Bowel is not obstructed. Normal appendix. Scattered colonicdiverticulosis, without evidence of acute diverticulitis. 3. Mild prostatomegaly. Correlate with serum PSA. Please note that all CT scans at this facility use dose modulation,iterative reconstruction, and/or weight-based dosing when appropriate toreduce radiation dose to as low as reasonably achievable. Dictated by Caty Barton MD @ 10/18/2022 8:32:28 PM (Electronically Signed) aJsmyn Lara MD CT Fi nal Result from Last 3 Months or Most Recently Relevant to Health Maintenance Insurance [employer] WORK[employer] COMP Advance Directives * Full Code (Latest Code Status on File) Date Activated Date Inactivated Comments 05/19/2019 2:20 PM 05/21/2019 5:24 PM * Full Code Date Activated Date Inactivated Comments 05/19/2019 2:20 PM 05/19/2019 2:20 PM * Full Code Date Activated Date Inactivated Comments 02/13/2011 7:06 AM 02/13/2011 2:28 PM Care Teams Supervisor Network Control Operators Relationship Specialty Start [place] [address] [place] [address] PCP - General Family Practice 03/09/18
--- OUTSIDE RECORDS SUMMARY | 2025-02-21 21:20 | XMS_ITS | Clinical Summary ---
Author Organization [facility] Address [address], [place] [address] Care Team Providers Care Crime Scene Examiner Name Role Phone Zachery Christianson MD Primary Care Provider [phone] Source Comments You are receiving this document as you are listed as the primary care provider,follow-up provider, or the patient has been referred to you for consultation.This is in compliance with the Medicare and[facility] EHR Incentive Program,which states [...] patient's age to complete this topic Insurance [facility] Care Teams Crime Scene Examiner Relationship Specialty Start [place] [address] [place] [address] PCP - General Family Practice 01/19/20
[2025-02-21 21:24] VITALS: RESP 16
== END 2025-02-21 21:24 | disposition home or self-care (01) ==
PROVIDERS: Emergency Provider Family Medicine; PCP Family Medicine
DX: M54.50 Low back pain, unspecified (principal)
CPT/HCPCS: 81001; 99282; 99283

== ENCOUNTER 2025-03-04 18:12 | Emergency (ER) | payer MEDICARE, SELFPAY ==
--- OUTSIDE RECORDS SUMMARY | 2025-03-04 18:15 | XMS_ITS | Clinical Summary ---
Author Organization [employer] [facility] Address [address] [place] [address] Care Team Providers Care Divinity Professor Name Role Phone Zachery Christianson MD Primary [...] Description 02/14/2025 9:25 AM CDT Office Visit [address] [address] Zachery Christianson MD Pre-Op Exam (DOS: 03/04/25, [place] Rectal Procedure for removal of ulcerated hypertrophied anal papilla, Dr. Guzman, [facility], fax: [phone]) 02/14/2025 Orders Only [address] [address] Zachery Christianson MD 1 scan: (1-Ord) 02/14/2025 [...] AM CDT Legal Sex Male 5:48 AM GENERAL FARMER Gender Identity Male 01/29/2021 5:28 AM CDT [...] 167.6 cm (5' 6) 10/18/2024 12:22 PM GENERAL FARMER Body Mass Index 34.93 10/18/2024 12:22 PM GENERAL FARMER Plan of Treatment Health Maintenance Due Date [...] history exists Medical Devices Implanted Type Area Dancer Or Choreographer Device Identifier Shelf Expiration Date Model / Serial / Lot Mesh 3d Max Lg Rt 4.3inx6.3in - [id number] Implanted:Qty: 1 on 02/13/2011 at [facility] Right: Inguinal DAVOL 11/15/2015 [id number] / / [id number] Procedures Procedure Name Priority Date/Time Associated Diagnosis Comments CBC WITH AUTO DIFFERENTIAL Routine 02/14/2025 9:54 AM CDT Pre-op exam BASIC METABOLIC PANEL Routine 02/14/2025 9:54 AM CDT Pre-op exam EKG 12 LEAD Routine 02/14/2025 12:00 AM CDT Pre-op exam SCAN-COLONOSCOPY 11/23/2024 8:30 AM GENERAL FARMER LIPID PANEL Routine 10/18/2024 12:51 PM GENERAL FARMER Routine health maintenance CT ABDOMEN PELVIS W STAT 10/18/2022 7 :47 PM GENERAL FARMER from Last 3 Months or Most Recently [...] Christianson MD HEMATOLOGY Final Result [facility] [address] [place] [address], [place] [phone] [facility] [address] [place] [address] * BASIC METABOLIC PANEL (02/14/2025 9:54 AM CDT) Pathologist [facility] GLUCOSE 99 65 - 139 mg/dL [facility] Comment: Non-fasting reference interval UREA [...] Uriah CALCIUM 9.8 8.6 - 10.3 mg/dL [facility] Blood BLOOD SPECIMEN / Unknown 02/14/2025 9:54 AM CDT 02/14/2025 9:56 AM CDT Narrative [facility] - 02/15/2025 4:38 AM CDT FASTING:NO FASTING: NO us Zachery Christianson MD CHEMISTRY Final Result [facility] [address] [place] [address], [facility] [address] [place] [address] * EKG 12 LEAD (02/14/2025 12:00 AM CDT) us Zachery Christianson MD EKG ORD Final Result * SCAN-COLONOSCOPY (11/23/2024 8:30 AM GENERAL FARMER) Narrative Procedure Note Braeden Suh DO - 11/23/2024 7:49 AM CST [facility] [address] [facility], [address], [place] [address] Patient Name: Simone Wood Gender: Male Exam Date: 11/23/2024 Visit Number: [id number] Age: 64 Years Date of : 1960 Attending MD: Braeden Suh DO Medical Record#: [id number] Procedure: Colonoscopy Indications: Previous adenomatous polyp(s) Last [...] signed by: Micaela Fox MD Interpreted at [facility], [address] [place] [phone] Orders Instruction(s)/Education: Instruction/Education Timeframe Assessment Colon Cancer [...] ult * LIPID PANEL (10/18/2024 12:51 PM GENERAL FARMER) CHOLESTEROL, TOTAL 152 <200 mg/dL [facility] HDL CHOLESTEROL 64 > OR = 40 mg/dL [facility] TRIGLYCERIDES 124 <150 mg/dL [facility] LDL-CHOLESTEROL 67 mg/dL (calc) [facility] Comment: Reference range: <100 Desirable range <100 mg/dL for primary prevention; <70 mg/dL for patients with CHD or diabetic patients with > or = 2 CHD risk factors. LDL-C is now calculated using the Marguerite calculation, which is a validated novel method providing better accuracy than the Friedewald equation in the estimation of LDL-C. Edwin MASCORRO et al. APOORVA. 2013;310(19): 2391-2844 (http://education.WazeTrip/faq/QLV887) CHOL/HDLC RATIO 2.4 <5.0 (calc) [facility] NON HDL CHOLESTEROL 88 <130 mg/dL (calc) [facility] Comment: For patients with diabetes plus 1 major ASCVD risk factor, treating to a non-HDL-C goal of <100 mg/dL (LDL-C of <70 mg/dL) is considered a therapeutic option. Blood BLOOD SPECIMEN / Unknown 10/18/2024 12:51 PM GENERAL FARMER 10/18/2024 12:53 PM GENERAL FARMER Narrative [facility] - 10/19/2024 5:03 AM GENERAL FARMER FASTING:YES FASTING: YES us Zachery Christianson MD CHEMISTRY Final Result [facility] [address] [place] [address], [facility] [address] [place] [address] * CT ABDOMEN PELVIS W (10/18/2022 7:47 PM GENERAL FARMER) Anatomical Region Laterality Modality Abdomen, Pelvis, AORTA, LIVER, SPLEEN Computed Tomography 10/18/2022 8:32 PM GENERAL FARMER Impressions 10/18/2022 8:32 PM GENERAL FARMER 1. Few prominent nondilated loops of small [...] PM (Electronically Signed) Narrative 10/18/2022 8:32 PM GENERAL FARMER For Patients: As a result of the [...] MD @ 10/18/2022 8:32:28 PM (Electronically Signed) Jasmyn Lara MD CT Fi nal Result from [...] 7:06 AM 02/13/2011 2:28 PM Care Teams Divinity Professor Relationship Specialty [place] [address] [place] [address] PCP - General Family Practice 03/09/18
--- OUTSIDE RECORDS SUMMARY | 2025-03-04 18:15 | XMS_ITS | Clinical Summary ---
Author Organization [facility] Address [address] [address] Phone Care Team Providers Care Photo Tube Assembler Name Role Phone Unavailable Primary Care Provider [...] Plan of Treatment Not on file Insurance [facility] Commercial Address: [facility] [address] [place] [address]
--- OUTSIDE RECORDS SUMMARY | 2025-03-04 18:15 | XMS_ITS | Clinical Summary ---
Author Organization [facility] Address [address], [place] [address] Care Team Providers Care Recruitment And Outreach Assistant Name Role Phone Zachery Christianson MD Primary Care Provider [phone] Source Comments You are receiving this document as you are listed as the primary care provider,follow-up provider, or the patient has been referred to you for consultation.This is in compliance with the Medicare and[facility] EHR Incentive Program,which states Providers who transition [...] Adult Preventive Visit 01/13/1978 Cholesterol 01/13/1995 Pneumococcal Vaccine 50+ Yrs (1 of 1 - PCV) 01/13/2010 COVID-19 Vaccine (2023-2 5 season) 2024 02/01/2021 Influenza Vaccine (#1) 2024 0, 09/11/2018, 08/20/2016 DTaP/Tdap/Td Vaccine (2 - Tdap) 07/16/2026 07/16/2016, 01/10/2007 RSV Vaccine (1 - 1-dose 75+ series) 01/13/2035 Zoster/Shingles Vaccine Completed 01/26/20, 11/04/2019 HepA Vaccine Aged Out No longer eligi ble based on patient's age to complete this topic HepB Vaccine Aged Out No longer eligi ble based on patient's age to complete this topic Hib Vaccine Aged Out No longer eligi ble based on patient's age to complete this topic IPV (Polio) Vaccine Aged Out No longe r eligible based on patient's age to complete this topic MCV4 Vaccine Aged Out No longer eligi ble based on patient's age to complete this topic Meningococcal B Vaccine Aged Out No l onger eligible based on patient's age to complete this topic Insurance [facility] Care Teams Recruitment And Outreach Assistant Relationship Specialty [place] [address] [place] [address] PCP - General Family Practice 01/19/20
[2025-03-04 18:27] VITALS: BP 149/99; PULSE 91; RESP 18; TEMP 36.7; O2SAT 97; BMI 33.1
--- NOTE | 2025-03-04 18:32 | ED.GENADULT ---
HPI - General Adult General Time Seen by Provider: 18:32 Date Seen: 03/04/25 Chief complaint: Post Op Complication Stated complaint: Post surgery complications (can't urinate) Time Seen by Provider: 03/04/25 18:14 Source: patient and RN notes reviewed Mode of arrival: ambulatory Limitations: no limitations History of Present Illness HPI narrative: This 65-year-old male is ambulatory into the ED with inability to urinate today after a review colorectal procedure. He had an exam under anesthesia with propofol fall, had a large ulcerated hypertrophied papilla removed and an internal hemorrhoid removed. He baseline does not have prostatic symptoms, is not getting up to urinate at night, states his PSAs have been normal. Called his surgery center in the [facility] with his complaint of inability to urinate. He is uncomfortable but no significant abdominal pain. No nausea or vomiting. Related Data Home Medications ?Medication ?Instructions ?Recorded ?Confirmed No Known Home Medications 02/21/25 03/04/25 Allergies Allergy/AdvReac Type Severity Reaction Status Date / Time No Known Drug Allergies Allergy Verified 03/04/25 18:26 Review of Systems Narrative: As per HPI. PFSH PFS Social History Smoking Status: Never smoker How often do you have a drink containing alcohol: 2-4 times a month AUDIT-C Alcohol total score: 2 Non-prescribed substance use: denies use Exam Const: Vital Signs, click to edit/add: Vital Signs - 24 hr 03/04/25 18:27 Temperature 98.0 F Pulse Rate [Pulse Oximeter] 91 Respiratory Rate 18 Blood Pressure [Ri ght Upper Arm] 149/99 H Pulse Oximetry 97 Oxygen Delivery Me thod Room Air This 65-year-old male is alert, interactive, no apparent distress. Seen in exam room 7. Sclera clear, speaking easily in full sentences. CV regular rate and rhythm, no murmur. Lungs clear anteriorly, no tachypnea. Abdomen mildly obese but soft, maybe some very mild suprapubic discomfort but no rebound or guarding. Documenting provider has reviewed patient's vital signs: yes Course Course ED Course: Reviewed with patient that we will have him get bladder scan done. I will review with him once I know these results. If he is retaining urine, will discuss with him placing a short-term Campos catheter in. Reevaluation(s) Time of Reevaluation #1: 18:53 Reevaluation #1: Nursing staff after diligently looking only had about 90 mL in his bladder. He believes he has drank about 40 oz of fluid today. He may overall have been fluid deficit state due to going into surgery today and being NPO. We discussed a couple options, he would like to proceed with placing an IV, giving him a L of fluids and drinking oral fluids here. We can recheck his bladder scan to see the volume of of urine if he indeed cannot urinate. He understands we still may need to do catheterization. Did offer to do an in and out catheter at this time just to see true actual volume, he would prefer to try to push more fluids with the IV fluids and oral fluids. Time of Reevaluation #2: 20:41 Reevaluation #2: Patient has tried urinating a couple of times with difficulty. After all the fluids were in, was able to start urinating for a bit, then the stream stopped. He had to go in and out of the bathroom multiple times, did get the stream going again. He still feels some pressure. Re bladder scan shows 250 mils. We discussed that there could be some inflammation an irritation from the surgery, anesthesia in medicine sometimes can cause issues in men. I do think that this patient would benefit from short-term Campos catheter. He and his considered this and are planning on having the Campos catheter. I just do not for see him having resolution of the urinary obstructive symptoms quickly in this setting. Hopefully this will not be a long-term issue, maybe can follow up in clinic this next week for trial of voiding. Will use Uro jet for comfort. Additional Reevaluation(s): Nursing staff reported almost 800 mL of urine output. Will discharge to home with catheter in place. Vital Signs Vital signs: Initial Vital Signs Temperature 98.0 F 03/04/25 18: Temperature Source Temporal Artery Scan 03/04/25 18: Pulse Rate 91 03/04/25 18: Pulse Rhythm Regular 03/04/25 18: Respiratory Rate 18 03/04/25 18: Blood Pressure 149/99 H 03/04/25 18: Blood Pressure Mean 115 H 03/04/25 18:27 Blood Pressure Position Sitting 03/04/25 18:27 Pulse Oximetry 97 03/04/25 18:27 Oxygen Delivery Method Room Air 03/04/25 18:27 Vital Signs Temperature 98.0 F 03/04/25 18:27 Pulse Rate 91 03/04/25 18:27 Respiratory Rate 18 03/04/25 18:27 Blood Pressure 149/99 H 03/04/25 18:27 Pulse Oximetry 97 03/04/25 18:27 Oxygen Delivery Method Room Air 03/04/25 18:27 Temperature 98.0 F 03/04/25 18:27 Pulse Rate 91 03/04/25 18:27 Respiratory Rate 18 03/04/25 18:27 Blood Pressure 149/99 H 03/04/25 18:27 Pulse Oximetry 97 03/04/25 18:27 Oxygen Delivery Method Room Air 03/04/25 18:27 Medications Administered Medications: Generic Name Dose Route Start Last Admin Trade Name Freq PRN Reason Stop Dose Admin Lidocaine HCl 6 ml 03/04/25 20:41 03/04/25 21:05 Lidocaine Hcl 2 % Jelly (Top) Sterile UR 6 ml ONCE PRN Administration Discontinued Medications Generic Name Dose Route Start Last Admin Trade Name Freq PRN Reason Stop Dose Admin Sodium Chloride 1,000 mls @ 1,000 mls/hr 03/04/25 18:52 03/04/25 20:20 0.9 % Sodium Chloride 1000 Ml IV 03/04/25 19:51 Infused .Q1H MELANIE Infusion Discharge Plan Discharge Clinical Impression: Acute urinary obstruction, Campos catheter status Patient Disposition: Home, Self-Care Condition: Stable Instructions: Campos Catheter Placement and Care (ED) Additional Instructions: Please schedule clinic follow-up early next week. They can attempt trial of voiding or refer you on to Urology if they are not comfortable doing this. Follow handout, if you have blockage of flow from your Campos catheter, seek re-evaluation. Prescriptions: No Action No Known Home Medications Follow Up/Referrals: Zachery Christianson MD [Primary Care Provider] - Stand Alone Forms: MyHealth Info Instructions
--- OUTSIDE RECORDS SUMMARY | 2025-03-04 18:46 | XMS_ITS | Clinical Summary ---
Author Organization [employer] [facility] [employer] Address [address] [place] [address] Care Team Providers Care Fitter Up Name Role Phone Zachery Christianson MD Primary [...] Description 02/14/2025 9:25 AM CDT Office Visit [address] [address] Zachery Christianson MD Pre-Op Exam (DOS: 03/04/25, [place] Rectal Procedure for removal of ulcerated hypertrophied anal papilla, Dr. Guzman, [facility], fax: [phone]) 02/14/2025 Orders Only [address] [address] Zachery Christianson MD 1 scan: (1-Ord) 02/14/2025 [...] AM CDT Legal Sex Male 5:48 AM SORTER PRICER Gender Identity Male 01/29/2021 5:28 AM CDT [...] 167.6 cm (5' 6) 10/18/2024 12:22 PM SORTER PRICER Body Mass Index 34.93 10/18/2024 12:22 PM SORTER PRICER Plan of Treatment Health Maintenance Due Date [...] history exists Medical Devices Implanted Type Area Space Operations Device Identifier Shelf Expiration Date Model / Serial / Lot Mesh 3d Max Lg Rt 4.3inx6.3in - [id number] Implanted:Qty: 1 on 02/13/2011 at [facility] Right: Inguinal DAVOL 11/15/2015 [id number] / / [id number] Procedures Procedure Name Priority Date/Time Associated Diagnosis Comments CBC WITH AUTO DIFFERENTIAL Routine 02/14/2025 9:54 AM CDT Pre-op exam BASIC METABOLIC PANEL Routine 02/14/2025 9:54 AM CDT Pre-op exam EKG 12 LEAD Routine 02/14/2025 12:00 AM CDT Pre-op exam SCAN-COLONOSCOPY 11/23/2024 8:30 AM SORTER PRICER LIPID PANEL Routine 10/18/2024 12:51 PM SORTER PRICER Routine health maintenance CT ABDOMEN PELVIS W STAT 10/18/2022 7 :47 PM SORTER PRICER from Last 3 Months or Most Recently [...] Christianson MD HEMATOLOGY Final Result [facility] [address] [place] [address], [place] [phone] [facility] [address] [place] [address] * BASIC METABOLIC PANEL (02/14/2025 9:54 AM CDT) Pathologist [facility] GLUCOSE 99 65 - 139 mg/dL [facility] Comment: Non-fasting reference interval UREA [...] Uriah CALCIUM 9.8 8.6 - 10.3 mg/dL [facility] Blood BLOOD SPECIMEN / Unknown 02/14/2025 9:54 AM CDT 02/14/2025 9:56 AM CDT Narrative [facility] - 02/15/2025 4:38 AM CDT FASTING:NO FASTING: NO us Zachery Christianson MD CHEMISTRY Final Result [facility] [address] [place] [address], [facility] [address] [place] [address] * EKG 12 LEAD (02/14/2025 12:00 AM CDT) us Zachery Christianson MD EKG ORD Final Result * SCAN-COLONOSCOPY (11/23/2024 8:30 AM SORTER PRICER) Narrative Procedure Note Braeden Suh DO - 11/23/2024 7:49 AM CST [facility] [address], [address], [place] [address] Patient Name: Simone Wood Gender: Male Exam Date: 11/23/2024 Visit Number: [id number] Age: 64 Years Date of : 1960 Attending MD: Braeden Suh DO Medical Record#: [id number] Procedure: Colonoscopy Indications: Previous adenomatous polyp(s) Last [...] signed by: Micaela Fox MD Interpreted at [facility], [address] [place] [phone] Orders Instruction(s)/Education: Instruction/Education Timeframe Assessment Colon Cancer [...] ult * LIPID PANEL (10/18/2024 12:51 PM SORTER PRICER) CHOLESTEROL, TOTAL 152 <200 mg/dL [facility] HDL CHOLESTEROL 64 > OR = 40 mg/dL [facility] TRIGLYCERIDES 124 <150 mg/dL [facility] LDL-CHOLESTEROL 67 mg/dL (calc) [facility] Comment: Reference range: <100 Desirable range <100 mg/dL for primary prevention; <70 mg/dL for patients with CHD or diabetic patients with > or = 2 CHD risk factors. LDL-C is now calculated using the Marguerite calculation, which is a validated novel method providing better accuracy than the Friedewald equation in the estimation of LDL-C. Edwin MASCORRO et al. APOORVA. 2013;310(19): 3487-0044 (http://education.Gojee/faq/CHK502) CHOL/HDLC RATIO 2.4 <5.0 (calc) [facility] NON HDL CHOLESTEROL 88 <130 mg/dL (calc) [facility] Comment: For patients with diabetes plus 1 major ASCVD risk factor, treating to a non-HDL-C goal of <100 mg/dL (LDL-C of <70 mg/dL) is considered a therapeutic option. Blood BLOOD SPECIMEN / Unknown 10/18/2024 12:51 PM SORTER PRICER 10/18/2024 12:53 PM SORTER PRICER Narrative [facility] - 10/19/2024 5:03 AM SORTER PRICER FASTING:YES FASTING: YES us Zachery Christianson MD CHEMISTRY Final Result [facility] [address] [place] [address], [facility] [address] [place] [address] * CT ABDOMEN PELVIS W (10/18/2022 7:47 PM SORTER PRICER) Anatomical Region Laterality Modality Abdomen, Pelvis, AORTA, LIVER, SPLEEN Computed Tomography 10/18/2022 8:32 PM SORTER PRICER Impressions 10/18/2022 8:32 PM SORTER PRICER 1. Few prominent nondilated loops of small [...] PM (Electronically Signed) Narrative 10/18/2022 8:32 PM SORTER PRICER For Patients: As a result of the [...] 7:06 AM 02/13/2011 2:28 PM Care Teams Fitter Up Relationship Specialty [place] [address] [place] [address] PCP - General Family Practice 03/09/18
--- OUTSIDE RECORDS SUMMARY | 2025-03-04 18:46 | XMS_ITS | Clinical Summary ---
Author Organization [facility] Address [address], [place] [address] Care Team Providers Care Physical Education Professor Name Role Phone Zachery Christianson MD Primary Care Provider [phone] [phone] Source Comments You are receiving this document as you are listed as the primary care provider,follow-up provider, or the patient has been referred to you for consultation.This is in compliance with the Medicare and[facility] EHR Incentive Program,which states Providers who [...] patient's age to complete this topic Insurance [facility] Care Teams Physical Education Professor Relationship Specialty [place] [address] [place] [address] PCP - General Family Practice 01/19/20
--- OUTSIDE RECORDS SUMMARY | 2025-03-04 18:46 | XMS_ITS | Clinical Summary ---
Author Organization [facility] Address [address] [address] Phone Care Team Providers Care Spray Painter Helper Name Role Phone Unavailable Primary Care Provider [...] Plan of Treatment Not on file Insurance [facility]
[2025-03-04] MEDS: 0.9 % SODIUM CHLORIDE 1000 ml 1,000 ML IV (19:10)
[2025-03-04] MEDS: lidocaine HCL 2 % JELLY (TOP) STERILE 6 ML UR (21:05)
== END 2025-03-04 21:45 | disposition home or self-care (01) ==
PROVIDERS: Emergency Provider Family Medicine; PCP Family Medicine
DX: N13.9 Obstructive and reflux uropathy, unspecified (principal); Z46.6 Encounter for fitting and adjustment of urinary device
CPT/HCPCS: 51702; 51798; 99283; J7030

== ENCOUNTER 2025-08-09 19:29 | Emergency (ER) | payer MEDICARE, SELFPAY ==
--- OUTSIDE RECORDS SUMMARY | 2025-01-07 08:35 | XMS_ITS | Continuity of Care Document ---
Author Organization [facility] Address [address] [address] [place] [address] Phone Care Team Providers Care Hospitality Host Name Role Phone Braeden Suh DO Unavailable Unavailable Allergies, Adverse Reactions, Alerts Substance Reaction Status Criticality No Known Allergies Active No Inform ation Medications Medication Instructions Dosage Effective Dates (start - stop) Status Comments No Drug Therapy Prescribed Procedures Procedure Date Colonoscopy Flex; W/remov Les- 25 Level Iv-surg Path Gross/micro 25 Offic/outpt E&m Estab Low-mod 2 [facility] End[facility]; [...] Diagnoses Date Provider Providers Copied on Encounter [facility], [address] [address], [address], [id number], [place] tel:[phone] [facility] No Information 5 Paposhaun Ortega. [address] [facility], [address], [id number], [place]. tel:[phone] [facility], [address] [address], [address], [id number], [place] tel:[phone] [facility] Colorectal polyp detected on colonoscopyDi verticulosis of colon without diverticuliti sRectal lesionEncount er for screening for malignant neoplasm of colonBenign neoplasm of transverse colonBenign neoplasm of sigmoid colonPersonal history of adenomatous and serrated colon polyps 5 Paposhaun DO Brinke. [address] [facility], [address], [id number], [place]. tel:[phone] Referring Provider: Referral Self, USE FOR SELF REFERRALS. [facility]ive [facility] [place]DA, [address] [address], [address], [id number], [place] tel:[phone] [facility] No Information 4 Taye Keane. [address] [facility], [address], [id number], [place]. tel:[phone] Offic/outpt E&m Estab Low-mod [facility] [place], [address] [address], [address], [id number], [place] tel:[phone] [facility] GI Symptoms or Concerns (chief complaint) Epigastric painAcute gastritis, presence of bleeding unspecified, unspecified gastritis type 2 Cynthia Wiggins. [address] [facility], [facility] [address], [place], [id number], [place]. tel:[phone] Referring Provider: Referral Self, USE FOR SELF REFERRALS. [facility], [address] [address], [address], [id number], [place] tel:[phone] [facility] GI Symptoms or Concerns (chief complaint) Epigastric painEpigastri c pain 2 Namrata Pollard. [address] [facility], [facility] [address], [place], [place], [id number], [place]. tel:[phone] Referring Provider: Referral Self, USE FOR SELF REFERRALS. Offic/outpt E&m Estab Mod-hi [address] [facility], [address] [address], [place], [place], [id number], [place] tel:[phone] [facility] GI Symptoms or Concerns (chief complaint) Epigastric painNauseaCon stipation, unspecified constipation type 2 Cynthia Wiggins. [address] [facility] [address], [place], [id number], [place]. tel:[phone] Referring Provider: Referral Self, USE FOR SELF REFERRALS. Established Level 3 or 15-24 min [facility], [address] [address], [place], [place], [id number], [place] tel:[phone] [facility] GI Symptoms or Concerns (chief complaint) LUQ painLLQ pain 0 Diann Mendoza. [address] [facility] [address], [place], [place], [id number], [place]. tel:[phone] Referring Provider: Zachery Christianson MD J, [address] [place], [address]. tel:[phone] [facility], [address] [address], [place], [place], [id number], [place] tel:[phone] [facility] Irregular Z line of esophagusHiat al herniaGastrod uodenitis without bleedingDuode nitis without bleedingAbnor mal findings on dx imaging of prt digestive tractUnspecif ied abdominal painDisease of esophagus, unspecified 0 No Information Referring Provider: Referral Self, USE FOR SELF REFERRALS. Established Level 4 or 25-39 min [facility] [place], [address] [address], [place], [place], [id number], [place] tel:[phone] [facility] GI Symptoms or Concerns (chief complaint) LUQ painLLQ painBloatingD ecreased appetite 0 Diann Mendoza. [address] [facility], [facility] [address], [place], [id number], [place]. tel:[phone] Referring Provider: Zachery Tyler, [address] [place], [address]. tel:[phone] [facility], [address] [address], [place], [id number], [place] tel:[phone] [facility] No Information 0 Carina Mckeon. [address] [facility], [facility] [address], [place], [id number], [place]. tel:[phone] Offic/outpt E&m Estab Mod-hi [address] [facility], [address] [address], [address], [id number], [place] tel:[phone] [facility] Comment (chief complaint) Dvrtclos of lg int w/o perforation or abscess w/o bleeding 0 Dereje Nguyen. [address] [facility], [facility] [address], [place], [id number], [place]. tel:[phone] Referring Provider: Referral Self, USE FOR SELF REFERRALS. [facility], [address] [address], [place], [id number], [place] tel:[phone] [facility] No Information 0 Carina Mckeon. [address] [facility], [facility] [address], [place], [address], [place]. tel:[phone] [facility], [address] [address], [place], [id number], [place] tel:[phone] [facility] Colorectal polypsDiverti culosis of colon without diverticuliti sHemorrhoids, externalEncou nter for screening for malignant neoplasm of colonBenign neoplasm of transverse colonBenign neoplasm of descending colonDvrtclos of lg int w/o perforation or abscess w/o bleedingBenig n neoplasm of descending colonBenign neoplasm of transverse colon Travon Duran. [address] [facility], [address], [place], [place], [id number], [place]. tel:[phone] Referring Provider: Zachery Tyler, [address] [place], [address]. tel:[phone] [facility] [place], [address] [address], [place], [place], [address], [place] tel:[phone] [facility] No Information Heather BOYD [facility]. [address] [facility], [address], [place], [place], [address], [place]. tel:[phone] Referring Provider: Zachery Tyler, [address] [facility], [place], [address]. tel:[phone] Offic/outpt E&m [facility] [place], [address] [address], [place], [place], [address], [place] tel:[phone] [facility] GI Symptoms or Concerns (chief complaint) Chest pain, unspecified typeDietary counseling and surveillanceE levated blood-pressur e reading, w/o diagnosis of htn No Information Referring Provider: Zachery Tyler, [address] [place], [address]. tel:[phone] Family History Family Member Type Diagnosis Age At Onset Mother Problem (finding) malignant neoplasm of s kin Brother Problem (finding) Cirrhosis Brother Problem (finding) alcoholism Son Problem (finding) alcoholism Problem (finding) Family history of Cance r, unknown Father Problem (finding) malignant neoplasm of s kin Father Problem (finding) gallbladder disease Sister Problem (finding) alcoholism Immunizations Vaccine Date Status Comments SARS-COV-2 (COVID-19) vaccin e, mRNA, spike protein, LNP, preservative free, 50 mcg/0.5 mL dose administered Note: [facility] bi-direct ional interface ; Source: Other Registry Afluria Qd administered Note: [facility] bi-directional interface ; Source: Other Registry SARS-COV-2 (COVID-19) vaccin e, mRNA, spike protein, LNP, preservative free, 50 mcg/0.5 mL dose administered Note: [facility] bi-direct ional interface ; Source: Other Registry SARS-COV-2 (COVID-19) vaccin e, mRNA, spike protein, LNP, bivalent, preservative free, 50 mcg/0.5 mL or 25 mcg/0.25 mL dose administered Note: [facility] bi-direct ional interface ; Source: Other Registry Afluria Qd administered Note: [facility] bi-directional interface ; Source: Other Registry SARS-COV-2 (COVID-19) vaccin e, mRNA, spike protein, LNP, bivalent booster, preservative free, 50 mcg/0.5 mL or 25 mcg/0.25 mL dose administered Note: [facility] bi-direct ional interface ; Source: Other Registry SARS-COV-2 (COVID-19) vaccin e, mRNA, spike protein, LNP, preservative free, 100 mcg/0.5mL dose or 50 mcg/0.25mL dose administered Note: [facility] bi -directional interface ; Source: Other Registry Afluria Qd administered Note: [facility] bi-directional interface ; Source: Other Registry SARS-COV-2 (COVID-19) vaccin e, mRNA, spike protein, LNP, preservative free, 100 mcg/0.5mL dose or 50 mcg/0.25mL dose administered Note: [facility] bi -directional interface ; Source: Other Registry SARS-COV-2 (COVID-19) vaccin e, mRNA, spike protein, LNP, preservative free, 100 mcg/0.5mL dose or 50 mcg/0.25mL dose administered Note: [facility] bi -directional interface ; Source: Other Registry Afluria Qd administered Note: [facility] bi-directional interface ; Source: Other Registry zoster [...] name Insurance type Covered alliance party ID Authorsama rahel(s) [facility] [id number] Social History Type Description Quantity Date Captured Comments Alcohol Use Details Unknown Caffeine Use Details Unknown Tobacco Use Status No Information Smoking Status No Information Sex Male Chief Complaint And Reason For Visit No Information Reason For Referral Reason For Referral No Information Plan Of Treatment Date Type Action Status Goal Lifestyle education regardin g diet completed Referral Ordered: referred to Colon and Rectal Surgery Rectal lesion Appointment date/timeframe: 12/27/2024 ordered Referral Ordered: CT Enterography WITH Contrast Appointment date/timeframe: 09/20/2020 ordered Referral Ordered: follow-up visit 2 Months Appointment date/timeframe: -today ordered History Of Present Illness Encounter Date Complaint History Of Prese nt Illness GI Symptoms or Concerns GI Symptoms or Concerns Simone Jackson is a 62-year-old male who is seen [...] or Concerns GI Symptoms or Concerns Simone Jackson is a 62-year-old male who is seen [...] and a decreased appetite. 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 He has generally been in pretty good [...] to the coronary angiogram.The chest pain, Mr. Jackson was admitted to the hospital for it [...] Status Date Functional Assessmen t No Information Medications Administered Medication Instructions Dosage Effective Dates (start - stop) Status Comments No Drug Therapy Prescribed Instructions Date Instruction Additional Infor juwan Diverticulosis/Diverticulitis Re lated to Diverticulosis of colon without diverticulitis Colon Polyps Related to Diver ticulosis of colon without diverticulitis High Fiber Diet Related to Diver ticulosis of colon without diverticulitis Colon Cancer Prevention Related to Diverticulosis of colon without diverticulitis 1. Continue Omeprazo le 40mg daily for [...] message me with any questions or concerns [phone]. Related to Epigastric pain -Patient's symptoms have resolved-He will restart protonix if needed-Patient will follow-up with [facility] as needed Related to LUQ pain NSAIDS List Related to Irreg ular Z line of esophagus Hiatal Hernia Related to Irreg ular Z line of esophagus Barretts Related to Irreg ular Z line of esophagus Gastritis Related to Irreg ular Z line of esophagus Gastroesophageal Reflux Disease Related to Irregular Z line of esophagus -EGD with gastric an d duodenal biopsies-CT enterography in 2 months to check for resolution of mild fat stranding seen in epigastric mesentery on 08/20/20 CT abdomen/pelvis performed in [place], [place]-Continue pantoprazole 40 mg daily-Minimize use of diclofenac and other [id number]-[id number]-pm in 2 months, after CT enterography Related [...] counseling and surveillance Assessments Type Assessment Date No Information Patient Care Teams Name Effective Dates (start - stop) Status Members No Information
[2025-08-09] VITALS (18 sets, daily range): BP systolic 106–137; BP diastolic 77–110; PULSE 59–72; RESP 8–20; TEMP 36.4; O2SAT 93–97; BMI 34.4
--- OUTSIDE RECORDS SUMMARY | 2025-08-09 19:31 | XMS_ITS | Clinical Summary ---
Author Organization [facility] Address [address], [place] [address] Care Team Providers Care Intake Rn Name Role Phone Zachery Christianson MD Primary Care Provider [phone] Source Comments You are receiving this document as you are listed as the primary care provider,follow-up provider, or the patient has been referred to you for consultation.This is in compliance with the Medicare and[facility] E[facility] Incentive Program,which states Providers who transition [...] of 1 - PCV) 01/13/2010 COVID-19 Vaccine (2024-2 6 season) 2025 02/01/2021 Influenza Vaccine (#1) 2025 0, 09/11/2018, 08/20/2016 DTaP/Tdap/Td Vaccine (2 - Tdap) 07/16/2026 07/16/2016, 01/10/2007 RSV Vaccine (1 - 1-dose 75+ series) 01/13/2035 Zoster/Shingles Vaccine Completed 01/26/20 20, 11/04/2019 HepA Vaccine Aged Out No longer [...] age to complete this topic Insurance [facility] Care Teams Intake Rn Relationship Specialty Start [place] [address] [place] [address] PCP - General Family Practice 01/19/20
--- OUTSIDE RECORDS SUMMARY | 2025-08-09 19:31 | XMS_ITS | Clinical Summary ---
Author Organization [employer] [facility] Address [address] [place] [id number] Care Team Providers Care Maintenance Director Name Role Phone Zachery Christianson MD Primary Care Provider Allergies No known active allergies Medications cholecalciferol (vitamin D3) (VITAMIN D3 ORAL) Take by mouth. Active mirtazapine 15 mg tabletIndication s:Insomnia, idiopathic Take 1 Tablet (15 mg) by mouth at bedtime. 30 Tablet 11 02/14/2025 Active Active Problems Problem Noted Date Diagnosed [...] inguinal hernia 02/12/20112019 Abnormal ECG 10/29/2019 Immunizations Immunization Administration Dates Next Due COVID-19 [...] AM CDT Legal Sex Male 5:48 AM ZINC PLATE GRAINER Gender Identity Male 01/29/2021 5:28 AM CDT Sexual Orientation Straight 01/29/2021 5: 28 AM CDT Occupation Industry Job Start Date Job End Date Not on file Not on file Not on file Not on file Obstetrics History Last Filed Vital Signs Vital Sign Reading Time Taken Comments Blood Pressure 121/88 03/07/2025 1:48 PM CDT Pulse 83 03/07/2025 1:48 PM CDT Temperature 36.1 C (97 F) 03/07/2025 1:48 PM CDT Respiratory Rate 16 02/07/2023 11:00 AM CDT Oxygen Saturation 97% 03/07/2025 1:48 PM CDT Inhaled Oxygen Concentration - - Weight 95.3 kg (210 lb) 03/07/2025 1:48 PM CDT Height 167.6 cm (5' 6) 10/18/2024 12:22 PM ZINC PLATE GRAINER Body Mass Index 33.89 10/18/2024 12:22 PM ZINC PLATE GRAINER Plan of Treatment Health Maintenance Due Date Last Done Comments HIV for age 15-65 01/13/1975 Hepatitis C screening for age 18-79 01/13/1978 Pneumococcal series for age 50+ (1 of 2 - PCV) 01/13/1979 RSV vaccine for adults or (1 - Risk 60-74 years 1-dose series) 2020 AAA screening age 65-74 01/13/2025 10/18/20, 03/26/2021, 10/28/2019, Additional history exists Medicare Wellness for age 65+ 01/13/2025 COVID-19 vaccine series ( season) 2025 10/18/2024, 10/03/2023, 09/12/2022, Additional history exists Influenza Vaccine (#1) 2025 , 10/03/2023, 09/12/2022, Additional history exists BMI (ht and wt on same day) for age 18+ 10/18/2025 10/18/2024, 10/03/2023, 07/25/2023, Additional history exists Depression screening for age 12+ 10/18/2025 10/18/2024, 10/18/2024, 07/25/2023, Additional history exists Tetanus booster 07/16/2026 07/16/2016, 01/2007, 10/22/2004 Lipids for age 45-75 10/18/2029 10/18/2024, 10/03/2023, 09/12/2022, Additional history exists Colonoscopy through age 75 11/23/203411/23, 09/01/2019, 09/29/2009 Zoster (shingles) series for age 50+ Completed 01/26/2020, 11/04/2019 Hepatitis B series for 19+ Aged Out N o longer eligible based on patient's age to complete this topic Medical Devices Implanted Type Area Opera Singer Device Identifier Shelf Expiration Date Model / Serial / Lot Mesh 3d Max Lg Rt 4.3inx6.3in - [id number] Implanted:Qty: 1 on 02/13/2011 at [facility] Right: Inguinal DAVOL 11/15/2015 [id number] / / [id number] Procedures Procedure Name Priority Date/Time Associated Diagnosis Comments SCAN-COLONOSCOPY 11/23/2024 8:30 AM ZINC PLATE GRAINER LIPID PANEL Routine 10/18/2024 12:51 PM ZINC PLATE GRAINER Routine health maintenance CT ABDOMEN PELVIS W STAT 10/18/2022 7 :47 PM ZINC PLATE GRAINER from Last 3 Months or Most Recently Relevant to Health Maintenance Results * SCAN-COLONOSCOPY (11/23/2024 8:30 AM ZINC PLATE GRAINER) Narrative Procedure Note Braeden Suh DO - 11/23/2024 7:49 AM CST [facility] [place] [address] [facility], [address], [place] [address] Patient Name: Simone Wood Gender: Male Exam Date: 11/23/2024 Visit Number: [id number] Age: 64 Years Date of : 1960 Attending MD: Braeden Suh DO Medical Record#: [id number] Procedure: Colonoscopy Indications: Previous adenomatous polyp(s) Last [...] signed by: Micaela Fox MD Interpreted at [facility], [address] [place] [id number] Orders Instruction(s)/Education: Instruction/Education Timeframe Assessment Colon Cancer [...] ult * LIPID PANEL (10/18/2024 12:51 PM ZINC PLATE GRAINER) [facility] CHOLESTEROL, TOTAL 152 <200 mg/dL [facility] HDL CHOLESTEROL 64 > OR = 40 mg/dL [facility] TRIGLYCERIDES 124 <150 mg/dL [facility] LDL-CHOLESTEROL 67 mg/dL (calc) [facility] Comment: Reference range: <100 Desirable range <100 mg/dL for primary prevention; <70 mg/dL for patients with CHD or diabetic patients with > or = 2 CHD risk factors. LDL-C is now calculated using the Edwin-Chatman calculation, which is a validated novel method providing better accuracy than the Friedewald equation in the estimation of LDL-C. Edwin SS et al. APOORVA. 2013;310(19): 0947-1333 (http://education.Arteris/faq/AKV672) CHOL/HDLC RATIO 2.4 <5.0 (calc) [facility] NON HDL CHOLESTEROL 88 <130 mg/dL (calc) [facility] Comment: For patients with diabetes plus 1 major ASCVD risk factor, treating to a non-HDL-C goal of <100 mg/dL (LDL-C of <70 mg/dL) is considered a therapeutic option. Blood BLOOD SPECIMEN / Unknown 10/18/2024 12:51 PM ZINC PLATE GRAINER 10/18/2024 12:53 PM ZINC PLATE GRAINER Narrative [facility] - 10/19/2024 5:03 AM ZINC PLATE GRAINER FASTING:YES FASTING: YES us Zachery Christianson MD CHEMISTRY Final Result [facility] [address] [id number], [facility] [address] [place] [address] * CT ABDOMEN PELVIS W (10/18/2022 7:47 PM ZINC PLATE GRAINER) Anatomical Region Laterality Modality Abdomen, Pelvis, AORTA, LIVER, SPLEEN Computed Tomography 10/18/2022 8:32 PM ZINC PLATE GRAINER Impressions 10/18/2022 8:32 PM ZINC PLATE GRAINER 1. Few prominent nondilated loops of small [...] PM (Electronically Signed) Narrative 10/18/2022 8:32 PM ZINC PLATE GRAINER For Patients: As a result of the Century Cures Act, medical imaging exams and procedure [...] a result of the Cures Act, medical imagingexams and procedure reports [...] Insurance [employer] [address] Advance Directives * Full Code (Latest Code Status on File) Date Activated Date Inactivated Comments 05/19/2019 2:20 PM 05/21/2019 5:24 PM * Full Code Date Activated Date Inactivated Comments 05/19/2019 2:20 PM 05/19/2019 2:20 PM * Full Code Date Activated Date Inactivated Comments 02/13/2011 7:06 AM 02/13/2011 2:28 PM Care Teams Maintenance Director Relationship Specialty Start [place] [address] [place] [address] PCP - General Family Practice 03/09/18
--- OUTSIDE RECORDS SUMMARY | 2025-08-09 19:31 | XMS_ITS | CCD ---
Author Name Interface, [id number] Address [address] [place] [address] [place] [id number] Reason for Visit Social History
--- OUTSIDE RECORDS SUMMARY | 2025-08-09 19:31 | XMS_ITS | Clinical Summary ---
Author Organization [facility] Address [address] [address] Phone Care Team Providers Care Tooth Cutter Pinion Name Role Phone Unavailable Primary Care Provider [...] Plan of Treatment Not on file Insurance [facility] [place] [address]
--- OUTSIDE RECORDS SUMMARY | 2025-08-09 19:31 | XMS_ITS | Clinical Summary ---
Author Organization [facility] Address [address] [place] [address] Care Team Providers Care Xerox Machine Operator Name Role Phone Unavailable Primary Care Provider Unavailabl e Source Comments Patient records contain information from all sites at [facility]. For routine questions regarding patient records, call [phone] during business hours, M-F 8:00 AM - 5:00 PM Central Time. Record requests for emergency care only can be directed to [phone] at any time.[facility] Allergies No known active allergies Medications cholecalciferol, vitamin D3, (VITAMIN D3 ORAL) Take by mouth daily. Active Encounters Date Type Department Care Team Description 06/23/2025 6:40 AM CDT - 06/23/2025 11:59 PM CDT Hospital Encounter Department of Radiology in [address] [address] Harjinder Candelario M.D. Pain Arm Right Discharge Disposition: Home or Self Care 06/14/2025 8:35 AM CDT - 06/14/2025 11:59 PM CDT Hospital Encounter Department of Laboratory Medicine in [address] [address] Harjinder Candelario M.D. Pain Arm Right Discharge Disposition: Home or Self Care 06/14/2025 8:00 AM CDT Office Visit Department of Orthopedic Surgery in [address] [phone] Harjinder Candelario M.D. Pain Arm Right (Primary Dx) Discharge Disposition: Home or Self Care 05/10/2025 9:30 AM CDT Comprehensive Visit Department of Orthopedic Surgery in [address] [phone] Juanita De La O, BOBY, C.N.P., D.N.P. Pain Shoulder Right (Primary Dx) Discharge Disposition: Home or Self Care from Last 3 Months Social History Tobacco Use Types Packs/Day Years Used Date Smoking Tobacco: Former Cigarettes Smokeless Tobacco: Never Alcohol Use Standard Drinks/Week Comments Yes 2 (1 standard drink = 0.6 oz pur e alcohol) [facility] Utilities Answer Date Recorded In the past 12 months has e electric, gas, oil, or water [employer] threatened to shut off services in your home? No 05/03/2025 Hunger Vital Sign Answer Date Recorded Within the past 12 months, y ou worried that your food would run out before you got the money to buy more. Never true 05/03/20 25 Within the past 12 months, t he food you bought just didn't last and you didn't have money to get more. Never true 05/03/2025 PRAPARE - Transportation Answer Date Re corded In the past 12 months, has l ack of transportation kept you from medical appointments or from getting medications? No 04/11 In the past 12 months, has l ack of transportation kept you from meetings, work, or from getting things needed for daily living? No 05/03/2025 Housing Stability Answer Date Recorded What is your living situation today? I have a [facility] place to live 05/03/2025 Sex and Gender Information Value Date Recorded Sex Assigned at Male 05/03/2025 4:11 PM CDT Legal Sex Male 1:50 PM CDT Gender Identity Male 05/03/2025 4:11 PM CDT Sexual Orientation Straight 05/03/2025 4: 11 PM CDT Plan of Treatment Upcoming Encounters Date Type Department Care Team (Late st Contact Info) Description 08/16/2025 11:30 AM CDT Office Visit Department of Orthopedic Surgery in [address] [phone] Harjinder Candelario M.D. [address] [place] [address] Discharge Disposition: Home or Self Care Health Maintenance Due Date Last Done Comments CT Colonography 1960 Cologuard 1960 FIT 1960 HIV Screening 1960 Hepatitis C Screening 1960 Pneumococcal vaccine (50+ years) (1 of 1 - PCV) 01/13/2010 Depression Screening (Annual PHQ-2) 11/10/2024 Fall Risk Screen (Annual) 01/13/2025 COVID-19 Vaccine ( season) 2025 10/18/2024, 10/03/2023, 09/12/2022, Additional history exists Influenza Vaccine (#1) 2025 , 10/03/2023, 09/12/2022, Additional history exists DTaP,Tdap,and Td Vaccines (2 - Td or Tdap) 07/16/2026 07/16/2016, 01/10/2007 Fasting Glucose for Diabetes Screening 10/03/2026 10/03/2023, 02/07/2023, 10/18/2022, Additional history exists Colonoscopy 11/23/2034 11/23/2024 Colorectal Cancer Screening 11/23/2034 Zoster Vaccines Completed 01/26/2020, 11/04/2019 Abdominal Aortic Aneurysm (AAA) Screen Completed 10/18/2022, 10/18/2022, 08/20/2020, Additional history exists IPV Vaccines Aged Out No longer eligi ble based on patient's age to complete this topic Procedures Procedure Name Priority Date/Time Associated Diagnosis Comments MR CERVICAL SPINE WITHOUT IV CONTRAST RAD - Routine (most inpatients and all outpatients) 06/23/2025 7:38 AM CDT Pain Arm Right SEDIMENTATION RATE, B Routine 06/14/2025 8:44 AM CDT Pain Arm Right C-REACTIVE PROTEIN (CRP), S/P Routine 06/14/2025 8:44 AM CDT Pain Arm Right from Last 3 Months Results * MR Cervical Spine without IV Contrast (06/23/2025 7:38 AM CDT) Anatomical Region Laterality Modality Spine, Cervical Spine, Neuro radiology RST LOS, Neuroradiology [facility], Neuroradiology [facility] N/A Magneti c Resonance Impressions 06/23/2025 1:44 PM CDT Cervical spondylosis without high-grade spinal canal or neuroforaminal stenosis. Narrative 06/23/2025 1:44 PM CDT EXAM: MR CERVICAL SPINE WITHOUT IV CONTRAST COMPARISON: None FINDINGS: Straightening of the normal lordotic curvature of the cervical spine. Trace grade 1 anterolisthesis of C6 on C7. Vertebral body heights are maintained. Mild vertebral body height loss without discrete fracture. Moderate intervertebral disc height loss at C6-C7. No suspicious marrow replacing process. Normal signal throughout the spinal cord. Visualized portions of the skull base are within normal limits. C2-3: No spinal canal or neuroforaminal stenosis. C3-4: No spinal canal or neuroforaminal stenosis. C4-5: Mild bilateral facet hypertrophy. Mild to moderate bilateral neuroforaminal stenosis. No spinal canal stenosis. C5-6: Shallow disc bulge. Mild bilateral facet hypertrophy. Mild buckling of the ligamentum flavum. Mild spinal canal stenosis. Mild bilateral neuroforaminal stenosis. C6-7: Shallow disc bulge and posterior osteophytic ridging. Mild bilateral facet hypertrophy. Mild spinal canal stenosis. Moderate bilateral neuroforaminal stenosis. C7-T1: No spinal canal or neuroforaminal stenosis. Extra-spinal Findings: No significant incidental findings Procedure Note Avis Casanova D.O. - 06/23/2025 EXAM: MR CERVICAL SPINE WITHOUT IV CONTRAST COMPARISON: None FINDINGS: Straightening of the normal lordotic curvature of the cervicalspine. Trace grade 1 anterolisthesis of C6 on C7. Vertebral body heightsare maintained. Mild vertebral body height loss without discrete fracture.Moderate intervertebral disc height loss at C6-C7. No suspicious marrow replacing process. Normalsignal throughout the spinal cord. Visualized portions of the skull baseare within normal limits. C2-3: No spinal canal or neuroforaminal stenosis. C3-4: No spinal canal or neuroforaminal stenosis. C4-5: Mild bilateral facet hypertrophy. Mild to moderate bilateralneuroforaminal stenosis. No spinal canal stenosis. C5-6: Shallow disc bulge. Mild bilateral facet hypertrophy. Mild bucklingof the ligamentum flavum. Mild spinal canal stenosis. Mild bilateralneuroforaminal stenosis. C6-7: Shallow disc bulge and posterior osteophytic ridging. Mildbilateral facet hypertrophy. Mild spinal canal stenosis. Moderatebilateral neuroforaminal stenosis. C7-T1: No spinal canal or neuroforaminal stenosis. Extra-spinal Findings: No significant incidental findings IMPRESSION: Cervical spondylosis without high-grade spinal canal or neuroforaminalstenosis. us Harjinder Candelario M.D. IMG MRI PROCEDURES Final R esult * Sedimentation Rate (06/14/2025 8:44 AM CDT) Sedimentation Rate, B 1 0 - 22 mm/1 h 06/14/2025 1:03 PM CDT RDWG Blood (Blood, Venous) 06/14/2025 8:44 AM CDT 06/14/2025 12:33 PM CDT us Harjinder Candelario M.D. LAB BLOOD ADD-ON Final Res ult [facility] [address] [place] [phone], [facility] RDW[facility] [place] [address] [place] [phone] * CRP (C-Reactive Protein) (06/14/2025 8:44 AM CDT) C-Reactive Protein (CRP), P <3.0 <5.0 mg/L 06/14/2025 9:03 AM CDT CNFL Blood (Blood, Venous) 06/14/2025 8:44 AM CDT 06/14/2025 8:45 AM CDT us Harjinder Nguyen.D. LAB BLOOD ADD-ON Final Res ult [facility] [address] [place] [id number], [place] CNFL [facility] in [address] [place] [address] from Last 3 Months Insurance ARE
--- NOTE | 2025-08-09 19:56 | CRLHL7_ITS ---
For Patients: As a result of the Cures Act, medical imaging exams and procedure reports are released immediately into your electronic medical record. You may view this report before your referring provider. If you have questions, please contact your health care provider. INDICATION: Chest pain, recent COVID-19, palpitations TECHNIQUE: Chest radiograph 2 views COMPARISON: None FINDINGS: Mediastinum: The mediastinum is normal in appearance. The cardiac silhouette is at upper limits of normal in size. Lung: There is a 7 mm calcified granuloma present in the right lateral lung base. No sign of pleural effusion seen. No pneumothorax is identified. Bone and Soft tissue: Unremarkable for age. IMPRESSION: 1. No acute cardiopulmonary disease is seen. Dictated by Blaise Clemens MD @ 08/09/2025 9:01:43 PM Dictated by: Blaise Clemens MD @ 08/09/2025 21:01:48 (Electronically Signed)
--- NOTE | 2025-08-09 19:56 | CRLHL7_ITS ---
For Patients: As a result of the Century Cures Act, medical imaging exams and procedure reports are released immediately into your electronic medical record. You may view this report before your referring provider. If you have questions, please contact your health care provider. INDICATION: Pulmonary embolism (PE) suspected, chest pain. Recent COVID. TECHNIQUE: CT chest PE was acquired with 95 cc Isovue 370 IV contrast. Multiplanar reformats performed including 3D MIP reconstructions. COMPARISON: None. FINDINGS: Heart and vasculature: No pulmonary embolism identified. Main pulmonary artery mildly dilated to 3.2 cm. Ascending thoracic aortic aneurysm measuring 4.2 cm. Mild cardiomegaly. No pericardial effusion. Mild coronary artery calcification. Lungs and pleura: Right lower lobe calcified granuloma. Mild bilateral ground-glass attenuation. No pleural effusion or pneumothorax. Patent central airways. Lymph nodes/mediastinum: No suspicious mediastinal or hilar lymphadenopathy. Calcified mediastinal and hilar lymph nodes likely reflect sequela of prior granulomatous disease. Chest wall: No suspicious chest wall mass or fluid collection. Upper abdomen: Calcified granulomas within the liver and spleen. Colonic diverticulosis. No acute abnormality. Bones: No acute abnormality. IMPRESSION: 1. No pulmonary embolism appreciated. 2. Mild bilateral ground-glass attenuation may be related to air trapping and/or small airway disease, however mild infectious/inflammatory process not excluded in the appropriate clinical context. 3. Mild cardiomegaly. 4. Ascending thoracic aortic aneurysm measuring 4.2 cm. 5. Mild dilatation of the main pulmonary artery which may be seen in the setting of pulmonary hypertension. Please note that all CT scans at this facility use dose modulation, iterative reconstruction, and/or weight-based dosing when appropriate to reduce radiation dose to as low as reasonably achievable. Dictated by Yosvany Gary MD @ 08/09/2025 10:13:47 PM (Electronically Signed)
[2025-08-09 20:08] LABS: Hematocrit* 47.4 % (37.0-53.0); Hemoglobin* 16.2 gm/dL (13.5-17.5); Immature Granulocytes Abs Auto 0.03 K/uL (0.00-0.30); Immature Granulocytes Pct Auto 0.4 %; Lymphocytes Absolute Auto 2.43 K/uL (0.90-2.90); Mean Corpuscular HGB Conc 34 gm/dL (32-36); Mean Corpuscular Hemoglobin 29 pg (26-34); Mean Corpuscular Volume 86 fL (80-100); RDW Coefficient of Variation % 13.0 % (11.5-15.5); Red Blood Count* 5.53 m/uL (4.30-5.90); White Blood Count* 6.70 K/uL (4.50-11.00)
--- NOTE | 2025-08-09 20:08 | ED.CHESTPAIN ---
HPI - Chest Pain General Date Seen: 08/09/25 <Paul Dolan DO - Last Filed: 08/09/25 20:55> Chief Complaint: Chest Pain <Paul Dolan DO - Last Filed: 08/09/25 20:55> Stated Complaint: Chest pain <Paul Dolan - Last Filed: 08/09/25 20:55> Time Seen by Provider: 08/09/25 19:46 <Paul Dolan DO - Last Filed: 08/09/25 20:55> Source: patient <Paul Dolan DO - Last Filed: 08/09/25 20:55> Mode of arrival: ambulatory <Paul Dolan DO - Last Filed: 08/09/25 20:55> Limitations: no limitations <Paul Dolan DO - Last Filed: 08/09/25 20:55> History of Present Illness HPI narrative: Patient is a 65-year-old male with no pertinent medical problems not currently on any medications who sees his primary care provider once a year for annual checkup presenting to the emergency department for chest pain. He states earlier today has with his granddaughter hand and not doing any strenuous work while spending time with her. States not long after he noticed some sign-in tight pain between his shoulder blades. Pain got worse whenever he inhaled. This was around 14:00. He also had chest pain at this time but noticed the back pain 1st. He laid down around 15:00 and woke up in the back pain was gone. He continued to have the chest pain. Pain was not going away and then he noticed when he presses on his chest she could reproduce the pain. Due to this he came to the emergency department. States overall pain is greatly improved. Currently rates pain as a 2/10. Does not having history of heart disease. No family history of clotting disorders. Of note he had COVID 2 weeks ago. No other concerns noted <Paul Dolan - Last Filed: 08/09/25 20:55> Related Data Home Medications: Home Medications ?Medication ?Instructions ?Recorded ?Confirmed No Known Home Medications 02/21/25 08/09/25 <Paul P Fulda, - Last Filed: 08/09/25 20:55> Allergies/Adverse Reactions: Allergies Allergy/AdvReac Type Severity Reaction Status Date / Time No Known Drug Allergies Allergy Verified 08/09/25 20:45 <Paul Dolan DO - Last Filed: 08/09/25 20:55> Review of Systems Status of ROS Reports: 10 or more systems reviewed and unremarkable except as noted in History and below <Paul Dolan DO - Last Filed: 08/09/25 20:55> PFSH PFS Social History: Social History Smoking Status: Never smoker Do you use any of these nicotine containing products: None Second hand tobacco smoke exposure: No How often do you have a drink containing alcohol: 2-4 times a month AUDIT-C Alcohol total score: 2 Non-prescribed substance use: denies use service: No <Paul Dolan DO - Last Filed: 08/09/25 20:55> Exam Narrative Exam Narrative: Const: Well-nourished, Well-developed, in mild distress Eyes: PERRL, no conjunctival injection, and symmetrical lids HENT: Atraumatic external nose and ears. Moist mucous membranes. Neck: Symmetric, trachea midline, No thyromegaly. CVS: RRR, No murmurs or gallops. Peripheral pulses 2+ and equal in all extremities RESP: Unlabored respiratory effort. Clear to auscultation bilaterally. GI: Nontender/Nondistended, No rebound or guarding. MSK:Extremities w/o deformity, Normal Active ROM, tenderness to palpation of chest that reproduces his pain Skin: Warm, Dry. No rashes or lesions. Neuro: Normal Muscle tone, No focal neurological deficits. Psych: Awake, Alert, & Oriented x3. Appropriate mood and affect. <Paul Dolan DO - Last Filed: 08/09/25 20:55> Const Vital Signs, click to edit/add: Vital Signs - 24 hr 08/09/25 19:36 08/09/25 19:37 08/09/25 19:40 Temperature Pulse Rate 67 72 69 Pulse Rate [Pulse Oximeter] Respiratory Rate 12 20 Blood Pressure 137/110 H Blood Pressure [Right Upper Arm] Pulse Oximetry 96 96 95 Oxygen Delivery Method 08/09/25 19:41 08/09/25 19:42 08/09/25 20:00 Temperature 97.6 F Pulse Rate 72 68 Pulse Rate [Pulse Oximeter] 72 Respiratory Rate 18 14 16 Blood Pressure 122/81 Blood Pressure [Right Upper Arm] 137/110 H Pulse Oximetry 96 95 94 Oxygen Delivery Method Room Air 08/09/25 20:01 08/09/25 20:20 08/09/25 20:22 Temperature Pulse Rate 71 65 67 Pulse Rate [Pulse Oximeter] Respiratory Rate 14 16 Blood Pressure 120/81 114/79 Blood Pressure [Right Upper Arm] Pulse Oximetry 94 95 97 Oxygen Delivery Method 08/09/25 20:40 08/09/25 20:41 08/09/25 21:00 Temperature Pulse Rate 62 59 L Pulse Rate [Pulse Oximeter] Respiratory Rate 18 17 Blood Pressure 125/83 Blood Pressure [Right Upper Arm] Pulse Oximetry 95 95 95 Oxygen Delivery Method 08/09/25 21:01 08/09/25 21:02 08/09/25 21:20 Temperature Pulse Rate 62 60 61 Pulse Rate [Pulse Oximeter] Respiratory Rate 20 8 L Blood Pressure 115/82 Blood Pressure [Right Upper Arm] Pulse Oximetry 94 94 95 Oxygen Delivery Method 08/09/25 21:21 08/09/25 21:40 08/09/25 21:42 Temperature Pulse Rate 65 62 62 Pulse Rate [Pulse Oximeter] Respiratory Rate 20 Blood Pressure 106/77 117/87 Blood Pressure [Right Upper Arm] Pulse Oximetry 93 93 93 Oxygen Delivery Method <Paul Dolan, DO - Last Filed: 08/09/25 20:55> Vital Signs - 24 hr 08/09/25 19:36 08/09/25 19:37 08/09/25 19:40 Temperature Pulse Rate 67 72 69 Pulse Rate [Pulse Oximeter] Respiratory Rate 12 20 Blood Pressure 137/110 H Blood Pressure [Right Upper Arm] Pulse Oximetry 96 96 95 Oxygen Delivery Method 08/09/25 19:41 08/09/25 19:42 08/09/25 20:00 Temperature 97.6 F Pulse Rate 72 68 Pulse Rate [Pulse Oximeter] 72 Respiratory Rate 18 14 16 Blood Pressure 122/81 Blood Pressure [Right Upper Arm] 137/110 H Pulse Oximetry 96 95 94 Oxygen Delivery Method Room Air 08/09/25 20:01 08/09/25 20:20 08/09/25 20:22 Temperature Pulse Rate 71 65 67 Pulse Rate [Pulse Oximeter] Respiratory Rate 14 16 Blood Pressure 120/81 114/79 Blood Pressure [Right Upper Arm] Pulse Oximetry 94 95 97 Oxygen Delivery Method 08/09/25 20:40 08/09/25 20:41 08/09/25 21:00 Temperature Pulse Rate 62 59 L Pulse Rate [Pulse Oximeter] Respiratory Rate 18 17 Blood Pressure 125/83 Blood Pressure [Right Upper Arm] Pulse Oximetry 95 95 95 Oxygen Delivery Method 08/09/25 21:01 08/09/25 21:02 08/09/25 21:20 Temperature Pulse Rate 62 60 61 Pulse Rate [Pulse Oximeter] Respiratory Rate 20 8 L Blood Pressure 115/82 Blood Pressure [Right Upper Arm] Pulse Oximetry 94 94 95 Oxygen Delivery Method 08/09/25 21:21 08/09/25 21:40 08/09/25 21:42 Temperature Pulse Rate 65 62 62 Pulse Rate [Pulse Oximeter] Respiratory Rate 20 Blood Pressure 106/77 117/87 Blood Pressure [Right Upper Arm] Pulse Oximetry 93 93 93 Oxygen Delivery Method <Monster Jewell MD - Last Filed: 08/11/25 10:22> Course Vital Signs Vital signs: Initial Vital Signs Pulse Rate 08/09/25 19:36 Blood Pressure 137/110 H 08/09/25 19:36 Blood Pressure Mean 119 H 08/09/25 19:36 Pulse Oximetry 96 08/09/25 19:36 Vital Signs Pulse Rate 08/09/25 19:36 Blood Pressure 137/110 H 08/09/25 19:36 Pulse Oximetry 96 08/09/25 19:36 Temperature 97.6 F 08/09/25 19:41 Pulse Rate 62 08/09/25 21:42 Respiratory Rate 20 08/09/25 21:21 Blood Pressure 117/87 08/09/25 21:42 Pulse Oximetry 93 08/09/25 21:42 Oxygen Delivery Method Room Air 08/09/25 19:41 <Paul Dolan DO - Last Filed: 08/09/25 20:55> Initial Vital Signs Pulse Rate 08/09/25 19:36 Blood Pressure 137/110 H 08/09/25 19:36 Blood Pressure Mean 119 H 08/09/25 19:36 Pulse Oximetry 96 08/09/25 19:36 Vital Signs Pulse Rate 08/09/25 19:36 Blood Pressure 137/110 H 08/09/25 19:36 Pulse Oximetry 96 08/09/25 19:36 Temperature 97.6 F 08/09/25 19:41 Pulse Rate 62 08/09/25 21:42 Respiratory Rate 20 08/09/25 21:21 Blood Pressure 117/87 08/09/25 21:42 Pulse Oximetry 93 08/09/25 21:42 Oxygen Delivery Method Room Air 08/09/25 19:41 <Monster Jewell MD - Last Filed: 08/11/25 10:22> MDM - Chest Pain MDM Narrative Medical decision making narrative: Patient is 65-year-old male presenting for chest pain. The differential diagnosis of chest pain is broad and includes common etiologies such as musculoskeletal strain, GERD, pneumonia, etc. More serious etiologies considered include PE, coronary artery disease, pneumothorax, aortic dissection, aortic aneurysm. Considering recent COVID I am concerned about PE. Considering pain is worse when he takes a breath I will discuss straight to a CTA. I was also concerned will aortic dissection due to the back pain the back pain since fully resolved, he has stable vital signs, and chest pain is reproduced with palpation. I have low concern for ordered aneurysm. Will do EKG and troponin to look for cardiac abnormalities. CT will also help look for signs pneumonia or pneumothorax. EKG, troponin, CBC, BMP, magnesium all ordered. Patient's lab work returned showing no acute concerning abnormalities. Initial troponin EKG which was independently reviewed by myself shows no acute concerning abnormalities. Will repeat troponin. Heart score is 3. <Paul Dolan DO - Last Filed: 08/09/25 20:55> Patient is 65-year-old male presenting for chest pain. The differential diagnosis of chest pain is broad and includes common etiologies such as musculoskeletal strain, GERD, pneumonia, etc. More serious etiologies considered include PE, coronary artery disease, pneumothorax, aortic dissection, aortic aneurysm. Considering recent COVID I am concerned about PE. Considering pain is worse when he takes a breath I will discuss straight to a CTA. I was also concerned will aortic dissection due to the back pain the back pain since fully resolved, he has stable vital signs, and chest pain is reproduced with palpation. I have low concern for ordered aneurysm. Will do EKG and troponin to look for cardiac abnormalities. CT will also help look for signs pneumonia or pneumothorax. EKG, troponin, CBC, BMP, magnesium all ordered. Patient's lab work returned showing no acute concerning abnormalities. Initial troponin EKG which was independently reviewed by myself shows no acute concerning abnormalities. Will repeat troponin. Heart score is 3. INDICATION: Pulmonary embolism (PE) suspected, chest pain. Recent COVID. TECHNIQUE: CT chest PE was acquired with 95 cc Isovue 370 IV contrast. Multiplanar reformats performed including 3D MIP reconstructions. COMPARISON: None. FINDINGS: Heart and vasculature: No pulmonary embolism identified. Main pulmonary artery mildly dilated to 3.2 cm. Ascending thoracic aortic aneurysm measuring 4.2 cm. Mild cardiomegaly. No pericardial effusion. Mild coronary artery calcification. Lungs and pleura: Right lower lobe calcified granuloma. Mild bilateral ground-glass attenuation. No pleural effusion or pneumothorax. Patent central airways. Lymph nodes/mediastinum: No suspicious mediastinal or hilar lymphadenopathy. Calcified mediastinal and hilar lymph nodes likely reflect sequela of prior granulomatous disease. Chest wall: No suspicious chest wall mass or fluid collection. Upper abdomen: Calcified granulomas within the liver and spleen. Colonic diverticulosis. No acute abnormality. Bones: No acute abnormality. IMPRESSION: 1. No pulmonary embolism appreciated. 2. Mild bilateral ground-glass attenuation may be related to air trapping and/or small airway disease, however mild infectious/inflammatory process not excluded in the appropriate clinical context. 3. Mild cardiomegaly. 4. Ascending thoracic aortic aneurysm measuring 4.2 cm. 5. Mild dilatation of the main pulmonary artery which may be seen in the setting of pulmonary hypertension. Please note that all CT scans at this facility use dose modulation, iterative reconstruction, and/or weight-based dosing when appropriate to reduce radiation dose to as low as reasonably achievable. Dictated by Yosvany [place] MD @ 08/09/2025 10:13:47 PM I received this patient in change of shift pending repeat troponin and results CTA of the chest. Concern potential pulmonary embolus, other. Did review images. Noted was ascending thoracic aortic aneurysm. Mr. Wood otherwise is now asymptomatic and troponin is negative. Discussed findings with Mr. Wood and spouse. I do not think any further intervention is necessary at this time. At this point otherwise would recommend surveillance. See patient discharge plan as initiated by Dr. Dolan for further discussion I believe your chest pain is from costochondritis. This is inflammation of chest wall and should resolve on its own. Can take 400 - 600 mg of ibuprofen 2-3 times daily over the next few days. If the pain does persist I do recommend following up with your primary care provider. Return to emergency department for any new or worsening symptoms. I can not say that this aneurysm we discovered is related to your chest discomfort. Recommendations would be for discussion in primary care about surveillance, likely with ultrasound. It might be helpful if there was prior CT imaging of your chest that could compare. Return for marked increase in persistent chest pain, accompanied by shortness of breath, radiating into extremities. <Monster Jewell MD - Last Filed: 08/11/25 10:22> Medical Records Data Attestation: I reviewed the patient's medical records. <Monster Jewell MD - Last Filed: 08/11/25 10:22> Lab Data Attestation: I reviewed the patient's lab results. <Monster Jewell MD - Last Filed: 08/11/25 10:22> Labs: Lab Results 08/09/25 08/09/25 08/09/25 Range/Units 19:43 19:56 21:56 WBC 6.70 (4.50-11.00) K/uL RBC 5.53 (4.30-5.90) m/uL Hgb 16.2 (13.5-17.5) gm/dL Hct 47.4 (37.0-53.0) % MCV 86 (80-100) fL MCH 29 (26-34) pg MCHC 34 (32-36) gm/dL RDW Coeff of Arlin 13.0 (11.5-15.5) % Plt Count 231 (140-440) K/uL Neut % (Auto) 51.1 (42.0-72.0) % Lymph % (Auto) 36.3 (20-44) % [place] % (Auto) 9.1 (0.0-11.0) % Eos % (Auto) 2.7 (0.0-7.0) % Baso % (Auto) 0.4 (0.0-3.0) % Neut # (Auto) 3.42 (1.7-7.0) K/uL Lymph # (Auto) 2.43 (0.90-2.90) K/uL [place] # (Auto) 0.60 (0.00-0.90) K/UL Eos # (Auto) 0.18 (0.00-0.50) K/uL Baso # (Auto) 0.03 (0.00-0.30) K/uL Abs Immat Gran (auto) 0.03 (0.00-0.30) K/uL Imm/Tot Granulo (auto) 0.4 % Sodium 139 (135-149) mmol/L Potassium 4.0 (3.6-5.1) mmol/L Chloride 106 (96-114) mmol/L Carbon Dioxide 25 (20-32) mmol/L Anion Gap 8 (7-15) mEq/L BUN 22 (7-30) mg/dL Creatinine 1.1 (0.5-1.5) mg/dL Estimated Creat Clear 60.42 Estimated GFR 75 ml/min Glucose 98 (60-115) mg/dL Calcium 9.1 (8.4-10.6) mg/dL Magnesium 2.0 (1.5-2.6) mg/dL POC Troponin I 0.00 L 0.00 L (0.01-0.04) ng/ml <Paul Dolan, DO - Last Filed: 08/09/25 20:55> Lab Results 08/09/25 08/09/25 08/09/25 Range/Units 19:43 19:56 21:56 WBC 6.70 (4.50-11.00) K/uL RBC 5.53 (4.30-5.90) m/uL Hgb 16.2 (13.5-17.5) gm/dL Hct 47.4 (37.0-53.0) % MCV 86 (80-100) fL MCH 29 (26-34) pg MCHC 34 (32-36) gm/dL RDW Coeff of Arlin 13.0 (11.5-15.5) % Plt Count 231 (140-440) K/uL Neut % (Auto) 51.1 (42.0-72.0) % Lymph % (Auto) 36.3 (20-44) % [place] % (Auto) 9.1 (0.0-11.0) % Eos % (Auto) 2.7 (0.0-7.0) % Baso % (Auto) 0.4 (0.0-3.0) % Neut # (Auto) 3.42 (1.7-7.0) K/uL Lymph # (Auto) 2.43 (0.90-2.90) K/uL [place] # (Auto) 0.60 (0.00-0.90) K/UL Eos # (Auto) 0.18 (0.00-0.50) K/uL Baso # (Auto) 0.03 (0.00-0.30) K/uL Abs Immat Gran (auto) 0.03 (0.00-0.30) K/uL Imm/Tot Granulo (auto) 0.4 % Sodium 139 (135-149) mmol/L Potassium 4.0 (3.6-5.1) mmol/L Chloride 106 (96-114) mmol/L Carbon Dioxide 25 (20-32) mmol/L Anion Gap 8 (7-15) mEq/L BUN 22 (7-30) mg/dL Creatinine 1.1 (0.5-1.5) mg/dL Estimated Creat Clear 60.42 Estimated GFR 75 ml/min Glucose 98 (60-115) mg/dL Calcium 9.1 (8.4-10.6) mg/dL Magnesium 2.0 (1.5-2.6) mg/dL POC Troponin I 0.00 L 0.00 L (0.01-0.04) ng/ml <Monster Jewell MD - Last Filed: 08/11/25 10:22> ECG Data Attestation: I personally reviewed and interpreted this ECG as follows: <Paul Dolan DO - Last Filed: 08/09/25 20:55> Prior ECG tracings: not available for review <Paul Dolan DO - Last Filed: 08/09/25 20:55> Interpretation: Normal sinus rhythm with a rate of 66 beats per minute, normal intervals, normal axis, relatively flattened T-waves but they all do appear upper rate other than AVR any V1 which are normal to be inverted. No ST abnormalities <DO Branden Rousseau Last Filed: 08/09/25 20:55> Discharge Plan Discharge Clinical Impression: Costochondritis, Aneurysm, thoracic aortic <Paul Dolan DO - Last Filed: 08/09/25 20:55> Patient Disposition: Home, Self-Care <Paul Dolan Last Filed: 08/09/25 20:55> Condition: Stable <Paul Dolan Last Filed: 08/09/25 20:55> Instructions: Costochondritis (ED) <Paul Dolan Last Filed: 08/09/25 20:55> Additional Instructions: I believe your chest pain is from costochondritis. This is inflammation of chest wall and should resolve on its own. Can take 400 - 600 mg of ibuprofen 2-3 times daily over the next few days. If the pain does persist I do recommend following up with your primary care provider. Return to emergency department for any new or worsening symptoms. I can not say that this aneurysm we discovered is related to your chest discomfort. Recommendations would be for discussion in primary care about surveillance, likely with ultrasound. It might be helpful if there was prior CT imaging of your chest that could compare. Return for marked increase in persistent chest pain, accompanied by shortness of breath, radiating into extremities. <Paul Dolan DO Last Filed: 08/09/25 20:55> Prescriptions: No Action No Known Home Medications <Paul Dloan Last Filed: 08/09/25 20:55> Follow Up/Referrals: Zachery Christianson MD [Primary Care Provider, Family Practice] <Paul Dolan DO Last Filed: 08/09/25 20:55> Stand Alone Forms: [employer] Info Instructions <Paul Dolan DO Filed: 08/09/25 20:55>
[2025-08-09 20:09] LABS: Slide Review Reflex No
[2025-08-09 20:13] LABS: Troponin, Point-of-Care* 0.00 ng/ml (0.01-0.04)
[2025-08-09 20:20] LABS: Chloride* 106 mmol/L (96-114); Sodium* 139 mmol/L (135-149)
[2025-08-09 20:21] LABS: Potassium* 4.0 mmol/L (3.6-5.1)
[2025-08-09 20:24] LABS: Anion Gap 8 mEq/L (7-15); Blood Urea Nitrogen* 22 mg/dL (7-30); Calcium* 9.1 mg/dL (8.4-10.6); Carbon Dioxide* 25 mmol/L (20-32); Creatinine* 1.1 mg/dL (0.5-1.5); Est. Creatinine Clearance* 60.42; Estimated Glomerular Filt Rate 75 ml/min; Glucose* 98 mg/dL (60-115)
--- OUTSIDE RECORDS SUMMARY | 2025-08-09 20:24 | XMS_ITS | CCD ---
Author Name Interface, [id number] Address [address] [place] [address] [place] [id number] Reason for Visit Social History
[2025-08-09 22:19] LABS: Troponin, Point-of-Care* 0.00 ng/ml (0.01-0.04)
== END 2025-08-09 22:39 | disposition home or self-care (01) ==
PROVIDERS: Emergency Provider Student in an Organized Health Care Education/Training Program; PCP Family Medicine
DX: M94.0 Chondrocostal junction syndrome [Tietze] (principal); I71.21 Aneurysm of the ascending aorta, without rupture
CPT/HCPCS: 36415; 71046; 71275; 80048; 83735; 84484; 85025; 93005; 99284; 99285; Q9967